=== PATIENT | female | born 1945 | race Caucasian/White ===

== ENCOUNTER 2018-04-14 07:39 | Inpatient (IN) | payer OTHER, MEDICARE ==
[~2018-04-14] VITALS: Ht 170.2 cm; Wt 55.1 kg
[~2018-04-14 07:39] MED LIST: ADULT LOW DOSE81 MG PO; ADVAIR 500-501 EACH INH; AZITHROMYCIN250 M1 PO; AZITHROMYCIN500 MG PO; BACTRIM DS TAB1 EACH PO; DUONEB 3 MG/3 ML3 ML INH/SOL; GUAIFENESIN ER600 MG PO; INDAPAMIDE1.25 M1 PO; IPRAT-ALBUT 0.5-3 ML INH; IPRAT-ALBUT 0.5-3 ML NEB; IPRATROPIU0.2 MG/1 M INH; NORVASC5 M1 PO; PREDNISONE10 M2 PO; PREDNISONE10 MG PO; PREDNISONE5 M1 PO; PROAIR HFA0.09 MG/Ac INH; SPIRIVA 18 MCG18 MCG INH; SPIRIVA18 MCG INH; SYMBICORT 160/41 PUF INH; SYMBICORT 16010.2 GM INH; VENTOLIN HFA18 GM INH; VENTOLIN1 PUF INH; ZITHROMAX TRI-500 M1 PO; ZITHROMAX250 M2 PO; ZOCOR10 M1 PO
--- NOTE | 2018-04-14 07:56 | ED DYSPNEA/ASTHMA COMPLAINT ---
History of Present Illness General Chief Complaint: Upper Respiratory Sx/Fever Stated Complaint: COUGH,CONGESTION X 1 WEEK Source: patient, family, old records Exam Limitations: no limitations Vital Signs & Intake/Output Vital Signs & Intake/Output Vital Signs Date Time Temp Pulse Resp B/P B/P Pulse O2 O2 Flow FiO2 Mean Ox Delivery Rate 04/14 1111 97.8 80 20 126/59 92 Room Air 04/14 1054 Room Air 04/14 0801 94 04/14 0744 98.9 81 15 131/65 92 Room Air Room Air Allergies Coded Allergies: No Known Allergies (04/14/18) Reconcile Medications Albuterol Sulfate (Ventolin Hfa) 18 GM HFA.AER.AD 2 PUF INH Q4-6 PRN PRN COPD (Reported) Amlodipine Besylate (Norvasc) 5 MG TABLET 1 TAB PO DAILY HEART (Reported) Aspirin (Adult Low Dose Aspirin EC) 81 MG TABLET.DR 1 TAB PO DAILY HEART HEALTH (Reported) Fluticasone/Salmeterol (Advair 500-50 Diskus) 500 MCG-50 MCG/DOSE BLST.W.DEV 1 PUF INH BID BREATHING PROBLEMS (Reported) Guaifenesin (Mucinex) 600 MG TAB.ER.12H 1 TAB PO BID PRN MUCUS (Reported) Indapamide 1.25 MG TABLET 1 TAB PO DAILY WATER RETENTION (Reported) Ipratropium/Albuterol Sulfate (Iprat-Albut 0.5-3(2.5) MG/3 Ml) 0.5 MG-3 MG (2.5 MG BASE)/3 ML AMPUL.NEB 1 VIAL NEB Q4 HRS NEEDED PRN SHORTNESS OF BREATH ( Reported) Prednisone 20 MG TABLET 1 TAB PO DAILY PRN STEROID (Reported) Simvastatin (Zocor*) 10 MG TABLET 1 TAB PO DAILY CHOLESTEROL (Reported) Tiotropium [place] (Spiriva) 18 MCG CAP.W.DEV 1 CAP INH DAILY COPD (Reported) Triage Note: PT TO ED FOR C/C OF YELLOW PRODUCTIVE COUGH, STUFFY NOSE AND CHEST CONGESTION. +SOB, WORSE WITH EXERTION. DENIES CHEST PAIN, NAUSEA, DIZZINESS. PT ALSO REPORTS A SHORT EPISODE OF UPSET STOMACH AND NAUSEA, BUT BOTH HAVE SUBSIDED. Triage Nurses Notes Reviewed? yes HPI: Patient presents with increasing shortness of breath or productive cough. Patient does have COPD. Patient is not on home oxygen. Patient states that it feels like she is having postnasal drip. Patient states she is coughing up yellow sputum. Patient denies any orthopnea and states that she actually feels that she is breathing better when she is laying down. Patient denies any chest pain or chest tightness. Patient states that she knows that she needs a breathing treatment when her whole body feels like it is tightening up but she does did not feel any distinct tightness just in her chest. She states that she does feels slightly short of breath with exertion and that prompted her to come to the emergency department. There are no fevers or chills. There is no anorexia. Patient was seen by her primary care physician on . They discussed steroids with the doctor want to see how she would do with breathing treatments alone. Patient states his symptoms have worsened. Past History Travel History Traveled to [place] past 21 day No Medical History Any Pertinent Medical History? 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 Relation not specified for: FH: hypertension Hx Contributory? No Review of Systems Review of Systems Constitutional: Reports: no symptoms. EENTM: Reports: no symptoms. Respiratory: Reports: see HPI, cough, short of breath, sputum production. Cardiovascular: Reports: no symptoms. GI: Reports: no symptoms. Genitourinary: Reports: no symptoms. Musculoskeletal: Reports: no symptoms. Skin: Reports: no symptoms. Neurological/Psychological: Reports: no symptoms. Hematologic/Endocrine: Reports: no symptoms. Immunologic/Allergic: Reports: no symptoms. All Other Systems: Reviewed and Negative Physical Exam Physical Exam General Appearance: well developed/nourished, alert, awake, anxious, mild distress Head: atraumatic, normal appearance Eyes: Bilateral: PERRL, EOMI. Ears, Nose, Throat: normal pharynx, normal ENT inspection, hearing grossly normal Neck: normal inspection, supple, full range of motion, NO JVD Respiratory: decreased breath sounds, wheezing, respiratory distress Cardiovascular: regular rate/rhythm, normal peripheral pulses Gastrointestinal: normal bowel sounds, soft, non-tender, no organomegaly Extremities: normal inspection, normal capillary refill, normal range of motion, no edema Neurologic/Psych: no motor/sensory deficits, awake, alert, oriented x 3, normal gait, normal mood/affect Skin: intact, normal color, warm/dry Lymphatic: no anterior cervical nitza Core Measures ACS in differential dx? No CVA/TIA Diagnosis No Sepsis Present: No Sepsis Focused Exam Completed? No Progress Differential Diagnosis: asthma, bronchitis, COPD, pneumonia, pneumothorax Plan of Care: Orders Procedure Date/time Status Heart Healthy Diet 04/14 D Active ED Holding Orders 04/14 1200 Active Admit to inpatient 04/14 1200 Active Vital Signs 04/14 1200 Active Code Status 04/14 1200 Active TROPONIN LEVEL 04/14 1037 Complete EKG 04/14 1037 Active Telemetry/Football Coach 04/14 0823 Active TROPONIN LEVEL 04/14 0756 Complete COMPREHENSIVE METABOLIC PANEL 04/14 0756 Complete CBC WITHOUT DIFFERENTIAL 04/14 0756 Complete EKG 04/14 0756 Active Current Medications Sig/Nikky Start time Last Medication Dose Stop Time Status Admin Albuterol Sulfate 3 ML ONCE ONE 04/14 1200 AC 04/14 (Proventil) 04/14 1201 1154 Laboratory Tests 04/14/18 1045: Troponin I < 0.01 04/14/18 0813: Anion Gap 13, Estimated GFR > 60, BUN/Creatinine Ratio 16.7, Glucose 97, Calcium 9.6, Total Bilirubin 1.2, AST 25, ALT 36, Alkaline Phosphatase 64, Troponin I < 0.01, Total Protein 6.7, Albumin 4.3, Globulin 2.4, Albumin/Globulin Ratio 1.8, CBC w Diff NO MAN DIFF REQ, RBC 4.66, MCV 94.7, MCH 32.0 H, MCHC 33.8, RDW 12.1 , MPV 6.7 L, Gran % 62.8, Lymphocytes % 26.9, Monocytes % 8.9, Eosinophils % 0.8, Basophils % 0.6, Absolute Granulocytes 6.6 H, Absolute Lymphocytes 2.8, Absolute Monocytes 0.9 H, Absolute Eosinophils 0.1, Absolute Basophils 0.1 Diagnostic Imaging: Viewed by Me: Radiology Read. Discussed w/RAD: Radiology Read. CXR Impression: PATIENT: MALENA NOVOA PRESENT AGE : 73 PATIENT ACCOUNT NO: [id number] : 47 LOCATION: [facility] ORDERING PHYSICIAN: Ace Zeng MD SERVICE DATE: 04/14/18 EXAM TYPE: RAD - XRY-CHEST XRAY, TWO VIEWS EXAMINATION: XR CHEST CLINICAL INFORMATION: Productive cough. COMPARISON: Chest radiography 06/30/2016. CT chest 10/07/2017. TECHNIQUE: 2 views of the chest were obtained. FINDINGS: The lungs are hyperexpanded. Minimal hazy basilar opacification overlying the posterior bilateral lower lobes on the lateral projection. No other consolidation, pleural effusion, pulmonary edema, or pneumothorax. No mediastinal widening. Aortic atherosclerotic calcification. No acute osseous abnormalities. IMPRESSION: Minimal hazy basilar opacification overlying the bilateral lower lobes on the lateral projection may represent atelectasis or other subtle consolidation. Hyperexpanded lungs consistent with COPD. DICTATED BY: Dandre Momin MD DATE/ TIME DICTATED:04/14/18812 OPERATIONS EXAMINER:REGI DATE/TIME TRANSCRIBED: 04/14/18812 CONFIDENTIAL, DO NOT COPY WITHOUT APPROPRIATE AUTHORIZATION. < Electronically signed in Other Vendor System> SIGNED BY: Dandre Momin MD 04/14/18825 Initial ED EKG: SINUS RHYTHM, NONSPECIFIC st-t CHANGES, NEW INFERIOR t-WAVE INVERSIONS WHICH WERE NOT SEEN ON THE ekg FROM 6 MONTHS AGO HOWEVER THE st DEPRESSIONS INFERIORLY WERE SEEN PRIOR. Prior EKG: changed Repeat EKG: unchanged Rhythm Strip: normal sinus rhythm Comments: Patient was feeling better. Patient noticed to have a oxygen saturation of 89% at rest. Patient got up and ambulatory saturation was checked. Her ambulatory saturation dropped to 83% and patient began to feel chest tightness. Patient has wheezing on lung sounds. At this point the patient will be admitted for COPD exacerbation with probable pneumonia on chest x-ray. D/W DR. RAMIREZ, HE WILL CONSULT Departure Departure Disposition: STILL A PATIENT Condition: Stable Clinical Impression Primary Impression: Pneumonia Secondary Impressions: COPD exacerbation, Hypokalemia, ST segment changes on electrocardiogram Referrals: Sharan Patel MD (PCP/Family) Johann Ramirez MD Departure Forms: Customer Survey General Discharge Information Admission Note Spoke With: Sharan Patel MD Documentation of Exam: Documentation of any treatments & extenuating circumstances including Concerns Regarding Discharge (functional status, medication knowledge or non-compliance, living conditions, etc.) that warrant an admission rather than observation: [ Patient to be admitted for COPD exacerbation with hypoxia and possible pneumonia seen on chest x-ray. Patient will require nebulizers, steroids, antibiotics, pulmonary consultation. She also has EKG changes however 2 sets of enzymes are negative. Patient should be on telemetry monitoring and have cardiology consultation. Her potassium has been replaced.] Critical Care Note Critical Care Note Critical Care Time: mins: (90 MIN)
[2018-04-14 08:26] LABS: ABSOLUTE BASOPHIL COUNT 0.1 /CUMM (0.0-0.2); ABSOLUTE EOSINOPHIL COUNT 0.1 /CUMM (0.0-0.7); ABSOLUTE GRANULOCYTE CT 6.6 /CUMM (1.4-6.5); ABSOLUTE LYMPH COUNT 2.8 /CUMM (1.2-3.4); ABSOLUTE MONOCYTE COUNT 0.9 /CUMM (0.10-0.60); BASOPHIL % 0.6 % (0.0-2.0); EOSINOPHIL % 0.8 % (0-5); GRANULOCYTE % 62.8 % (42.2-75.2); HEMATOCRIT 44.2 % (37-47); MEAN CORPUSCULAR HGB CONC 33.8 G/DL (33.0-37.0); MEAN CORPUSCULAR VOLUME 94.7 FL (81.0-99.0); MEAN PLATELET VOLUME 6.7 FL (7.4-10.4); PLATELET COUNT 379 /CUMM (130-400); RBC DISTRIBUTION WIDTH 12.1 % (11.5-14.5); RED BLOOD CELL CT 4.66 /CUMM (4.20-5.40); WHITE BLOOD CELL COUNT 10.4 /CUMM (4.8-10.8)
--- NOTE | 2018-04-14 08:26 | RADIOLOGY REPORT ---
EXAMINATION: XR CHEST CLINICAL INFORMATION: Productive cough. COMPARISON: Chest radiography 06/30/2016. CT chest 10/07/2017. TECHNIQUE: 2 views of the chest were obtained. FINDINGS: The lungs are hyperexpanded. Minimal hazy basilar opacification overlying the posterior bilateral lower lobes on the lateral projection. No other consolidation, pleural effusion, pulmonary edema, or pneumothorax. No mediastinal widening. Aortic atherosclerotic calcification. No acute osseous abnormalities. IMPRESSION: Minimal hazy basilar opacification overlying the bilateral lower lobes on the lateral projection may represent atelectasis or other subtle consolidation. Hyperexpanded lungs consistent with COPD.
[2018-04-14] MEDS ORDERED: PREDNISONE20 M1 PO (08:44)
[2018-04-14] MEDS ORDERED: MUCINEX600 M1 PO (08:46)
--- NOTE | 2018-04-14 12:18 | History & Physical ---
Barb Jung 04/14/18 1217: General Information and HPI MD Statement: I have seen and personally examined MALENA MONACO and documented this H&P. Source of Information: patient Exam Limitations: no limitations History of Present Illness: Ms. Monaco is a 73 yo lady with past medical history significant for COPD not on home oxygen, CAD s/p 2 stent placement in 2010, hypertension, hyperlipidemia who presented to ED with complaint of increasing shortness of breath productive cough since Saturday the . She reports coughing up pale yellow sputum since last night. Ususally has clear sputum. No fever/chills, no h/o sick contacts. Patient denies any orthopnea.She denies any chest pain or chest tightness. The patient visited COPD clinic on and received breathing treatment. She had some prednisone tab (20 mg) at home and started taking it on Saturday, finished yesterday(5-day). She came to the hospital today after noticing worsening of SOB since last night. Received 3 breathing treatment, feels good right. Denies SOB or CP at the time of our interview. Denies smoking, ETOH use, illicit drug use. Follows with Dr. Hernandez as outpatient. Was scheduled for abdominal US and Echo this week. Follows with Dr. Raines for COPD. Scheduled for a follow up CT scan next month for monitoring of nodules. In the ED, she was noted to have EKG changes(EKG revealed new T wave inversion in v2,v5,3, Avl, Avf; relatively similar to EKG in 2017). Allergies/Medications Allergies: Coded Allergies: No Known Allergies (04/14/18) Home Med list Albuterol Sulfate (Ventolin Hfa) 18 GM HFA.AER.AD 2 PUF INH Q4-6 PRN PRN COPD (Reported) Amlodipine Besylate (Norvasc) 5 MG TABLET 1 TAB PO DAILY HEART (Reported) Aspirin (Adult Low Dose Aspirin EC) 81 MG TABLET.DR 1 TAB PO DAILY HEART HEALTH (Reported) Fluticasone/Salmeterol (Advair 500-50 Diskus) 500 MCG-50 MCG/DOSE BLST.W.DEV 1 PUF INH BID BREATHING PROBLEMS (Reported) Guaifenesin (Mucinex) 600 MG TAB.ER.12H 1 TAB PO BID PRN MUCUS (Reported) Indapamide 1.25 MG TABLET 1 TAB PO DAILY WATER RETENTION (Reported) Ipratropium/Albuterol Sulfate (Iprat-Albut 0.5-3(2.5) MG/3 Ml) 0.5 MG-3 MG (2.5 MG BASE)/3 ML AMPUL.NEB 1 VIAL NEB Q4 HRS NEEDED PRN SHORTNESS OF BREATH ( Reported) Prednisone 20 MG TABLET 1 TAB PO DAILY PRN STEROID (Reported) Simvastatin (Zocor*) 10 MG TABLET 1 TAB PO DAILY CHOLESTEROL (Reported) Tiotropium [place] (Spiriva) 18 MCG CAP.W.DEV 1 CAP INH DAILY COPD (Reported) Past History Travel History Traveled to [place] past 21 day No Medical History Neurological: NONE EENT: CATARACS IN BOTH EYES Cardiovascular: hypertension, hyperlipidemia, CAD status post stenting in 2010 Respiratory: bronchitis, COPD, emphysema, non-oxygen dependent COPD pulmonary nodules, followed by CT scanning Gastrointestinal: NONE Hepatic: NONE Renal: NONE Musculoskeletal: NONE Psychiatric: NONE Endocrine: multinodular goiter Blood Disorders: NONE Cancer(s): NONE 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 Relation not specified for: FH: hypertension Psychosocial History Who Do You Live With? child Services at Home: None Primary Language: Thai ETOH Use: occasional use Illicit Drug Use: denies illicit drug use Other Social History: SHE QUIT SMOKING BUT HER SON SMOKES IN THE HOUSE Functional Ability ADLs Independent: dressing, eating, toileting, bathing. Ambulation: independent IADLs Independent: shopping, housework, finances, food prep, telephone, transportation , medication admin. Review of Systems Review of Systems Constitutional: Denies: chills, diaphoresis, fever, malaise, weakness, unexplained weight loss. EENTM: Reports: nasal congestion. Denies: blurred vision, double vision, visual changes, eye pain, eye drainage, eye tearing, icterus, ear discharge, ear pain, ear redness, hearing changes, epistaxis, nasal pain, throat pain. Cardiovascular: Denies: chest pain, edema, orthopena, palpitations, peripheral edema, syncope. Respiratory: Reports: cough, short of breath, sputum production. Denies: hemoptysis, orthopnea, stridor, wheezing. GI: Reports: constipation. Denies: abdominal pain, bloating, diarrhea, distention, bowel incontinence, melena, nausea, bloody stool, changes in stool, vomiting, steatorrhea. Genitourinary: Denies: discharge, dysuria, frequency, hematuria, hesitation, nocturia, pain, urgency. Musculoskeletal: Denies: back pain, gout, joint pain, joint swelling, muscle pain, muscle stiffness, neck pain. Skin: Denies: cysts, change in skin color, change in hair/nails, dryness, erythema, jaundice, lesions, lymphangitis, lumps, moles, rash. Neurological/Psychological: Reports: no symptoms. Hematologic/Endocrine: Reports: no symptoms. Immunologic/Allergic: Reports: no symptoms. All Other Systems: Reviewed and Negative Exam & Diagnostic Data Last 24 Hrs of Vital Signs/I&O Vital Signs Date Time Temp Pulse Resp B/P B/P Pulse O2 O2 Flow FiO2 Mean Ox Delivery Rate 04/14 1154 95 Nasal 2.0L Cannula 04/14 1111 97.8 80 20 126/59 92 Room Air 04/14 1054 Room Air 04/14 0936 94 04/14 0801 94 04/14 0744 98.9 81 15 131/65 92 Room Air Room Air Intake & Output 04/14 1600 04/14 0800 04/14 0000 Intake Total Output Total Balance Patient 125 lb Weight Weight Reported by Patient Measurement Method Physical Exam General Appearance Alert, Oriented X3, Cooperative, No Acute Distress Skin No Rashes HEENT Atraumatic, PERRLA, EOMI, Mucous Membr. moist/pink Neck Supple, No JVD, No thryomegaly, +2 Carotid Pulse wo Bruit, No LAD Lymphatic Cervical nl Cardiovascular Regular Rate, Normal S1, Normal S2, No Murmurs, Gallops, Rubs Lungs Diminished breath sounds b/l, no wheezes, no rhonchi Abdomen Normal Bowel Sounds, Soft, No Tenderness, No Hepatospenomegaly, No Masses Neurological Normal Speech, Strength at 5/5 X4 Ext, Normal Tone, Sensation Intact, Cranial Nerves 3-12 NL, Reflexes 2+ Extremities No Clubbing, No Cyanosis, No Edema, Normal Pulses, No Tenderness/ Swelling Vascular Normal Pulses, Pulses Symmetrical Last 24 Hrs of Labs/Sea: Laboratory Tests 04/14/18 1045: Troponin I < 0.01 04/14/18 0813: Anion Gap 13, Estimated GFR > 60, BUN/Creatinine Ratio 16.7, Glucose 97, Calcium 9.6, Magnesium 1.8, Total Bilirubin 1.2, AST 25, ALT 36, Alkaline Phosphatase 64 , Troponin I < 0.01, Total Protein 6.7, Albumin 4.3, Globulin 2.4, Albumin/ Globulin Ratio 1.8, CBC w Diff NO MAN DIFF REQ, RBC 4.66, MCV 94.7, MCH 32.0 H, MCHC 33.8, RDW 12.1, MPV 6.7 L, Gran % 62.8, Lymphocytes % 26.9, Monocytes % 8.9, Eosinophils % 0.8, Basophils % 0.6, Absolute Granulocytes 6.6 H, Absolute Lymphocytes 2.8, Absolute Monocytes 0.9 H, Absolute Eosinophils 0.1, Absolute Basophils 0.1 Diagnostic Data EKG Results SR 71, Qtc 453 ,new T wave inversion in v2,v5,3, Avl, Avf; relatively similar to EKG in 2017 CXR Results Minimal hazy basilar opacification overlying the bilateral lower lobes on the lateral projection may represent atelectasis or other subtle consolidation. Hyperexpanded lungs consistent with COPD. Assessment/Plan Assessment: Ms. Monaco is a 73 yo lady with past medical history significant for COPD not on home oxygen, CAD s/p 2 stent placement in 2010, hypertension, hyperlipidemia who presented to ED with complaint of increasing shortness of breath productive cough since Saturday the . In the ED, her symptoms improved after receiving TRC/Nebs. Afebrile, no leukocytosis. EKG reveals new T wave inversions in v2,v5,3, Avl, Avf; relatively similar to EKG in 2017. She has received one dose of Augmentin in the ED. Problem list: #COPD exacerbation #EKG change #Hypokalemia #h/o CAD, HTN, Hyperlipidemia Plan: accordingly; repeat labs later today taken her morning dose of medication today. As Ranked By This Provider Problem List: 1. COPD exacerbation 2. Hypokalemia Core Measures/Misc (08/18) Acute Coronary Syndrome ACS Diagnosis: No Congestive Heart Failure Congestive Heart Failure Diagnosis No Cerebrovascular Accident CVA/TIA Diagnosis: No VTE (View Protocol) VTE Risk Factors Age>40 No Mechanical VTE Prophylaxis d/t N/A MechProphylax Ordered No VTE Pharm Prophylaxis d/t NA PharmProphylax ordered Sepsis (View protocol) Sepsis Present: No Sharan Patel MD 04/14/18 1332: Attending MD Review Statement Attending Statement Attending MD Statement: examined this patient, discuss w/resident/PA/CADDY PACKER, agreed w/resident/PA/CADDY PACKER, reviewed EMR data (avail), reviewed images, amended to note Attending Assessment/Plan: Mrs. Monaco was interviewed and examined while in the emergency room. Her EMR was reviewed. Problems: -Acute on chronic respiratory failure with hypoxemia -AECOPD -New T-wave abnormalities on her EKG -Hypokalemia -History of CAD -Status post stenting -Aortic and mitral valve disease -Hypertension -Dyslipidemia -Nontoxic multinodular goiter -Impaired fasting glucose -Pulmonary nodule Plan: -Admit telemetry -Follow-up troponin and EKG -Cardiology consultation -Supplemental O2 -TRC -Intravenous steroids -Nebs +/- mucolytics -Intravenous azithromycin -Pulmonary consultation -Replete potassium follow electrolytes -Repeat TFTs -Follow glucose -Continue maintenance medications -
[2018-04-14 16:38] VITALS: BP 122/60
--- NOTE | 2018-04-14 18:15 | Cons- Cardiology ---
General Information and HPI Consulting Request Date of Consult: 04/14/18 Requested By: Sharan Patel MD Reason for Consult: Abnormal EKG History of Present Illness: The patient is a 73-year-old female with history of COPD, CAD status post stent placement 2 in 2010, hypertension, and hyperlipidemia. She is followed in the office by Dr. Hernandez. She presented with worsening shortness of breath and cough productive of yellow sputum. She is admitted for acute COPD exacerbation. She is noted to have an abnormal EKG, and I am consulted to rule out a cardiac cause of her symptoms. She has had no recent chest pain. No palpitations. No syncope. No orthopnea. No nausea or vomiting. No lightheadedness or dizziness. She notes that she was scheduled for an echocardiogram with Dr. Hernandez which she missed because of her hospital admission. Allergies/Medications Allergies: Coded Allergies: No Known Allergies (04/14/18) Home Med List: Albuterol Sulfate (Ventolin Hfa) 18 GM HFA.AER.AD 2 PUF INH Q4-6 PRN PRN COPD (Reported) Amlodipine Besylate (Norvasc) 5 MG TABLET 1 TAB PO DAILY HEART (Reported) Aspirin (Adult Low Dose Aspirin EC) 81 MG TABLET.DR 1 TAB PO DAILY HEART HEALTH (Reported) Fluticasone/Salmeterol (Advair 500-50 Diskus) 500 MCG-50 MCG/DOSE BLST.W.DEV 1 PUF INH BID BREATHING PROBLEMS (Reported) Guaifenesin (Mucinex) 600 MG TAB.ER.12H 1 TAB PO BID PRN MUCUS (Reported) Indapamide 1.25 MG TABLET 1 TAB PO DAILY WATER RETENTION (Reported) Ipratropium/Albuterol Sulfate (Iprat-Albut 0.5-3(2.5) MG/3 Ml) 0.5 MG-3 MG (2.5 MG BASE)/3 ML AMPUL.NEB 1 VIAL NEB Q4 HRS NEEDED PRN SHORTNESS OF BREATH ( Reported) Prednisone 20 MG TABLET 1 TAB PO DAILY PRN STEROID (Reported) Simvastatin (Zocor*) 10 MG TABLET 1 TAB PO DAILY CHOLESTEROL (Reported) Tiotropium [place] (Spiriva) 18 MCG CAP.W.DEV 1 CAP INH DAILY COPD (Reported) Current Medications: Current Medications Sig/Nikky Start time Last Medication Dose Route Stop Time Status Admin Albuterol Sulfate 2 PUF Q4-6 PRN PRN 04/14 1345 AC INH Albuterol Sulfate 3 ML ONCE ONE 04/14 1200 DC 04/14 INH 04/14 1201 1154 Albuterol Sulfate 3 ML ONCE ONE 04/14 0930 DC 04/14 INH 04/14 0931 0936 Albuterol Sulfate 3 ML ONCE ONE 04/14 0800 DC 04/14 INH 04/14 0801 0801 Amlodipine Besylate 5 MG DAILY 04/15 0900 AC PO Amoxicillin/ 0 .STK-MED ONE 04/14 0905 DC Clavulanate Potassium PO Amoxicillin/ 500 MG ONCE ONE 04/14 0845 DC 04/14 Clavulanate Potassium PO 04/14 0846 0859 Aspirin Buffered 81 MG DAILY 04/15 0900 AC PO Atorvastatin Calcium 5 MG 1700 04/14 1700 AC PO Azithromycin 500 MG DAILY 04/15 0900 AC Sodium Chloride 250 ML IV 04/19 0959 Enoxaparin Sodium 40 MG DAILY 04/14 1327 AC SC Guaifenesin 600 MG BID PRN 04/14 1345 AC PO Indapamide 1.25 MG 0800 04/15 0800 AC PO Ipratropium [place] 2.5 ML ONCE ONE 04/14 0800 DC 04/14 INH 04/14 0801 0801 Methylprednisolone 40 MG Q12 04/14 2100 AC IV Potassium Chloride 40 MEQ ONCE ONE 04/14 1230 DC 04/14 PO 04/14 1231 1230 Potassium Chloride 0 .STK-MED ONE 04/14 0944 DC PO Potassium Chloride 40 MEQ ONCE ONE 04/14 0930 DC 04/14 PO 04/14 0931 0946 Prednisone 0 .STK-MED ONE 04/14 0905 DC PO Prednisone 60 MG ONCE ONE 04/14 0845 DC 04/14 PO 04/14 0846 0859 Tiotropium [place] 1 PUF DAILY 04/14 1332 AC INH Review of Systems Review of Systems: No rash. No tremor. No melena. All other systems were reviewed, and were noted to be negative. 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 Relation not specified for: FH: hypertension Psychosocial History Where Do You Live? Home Who Do You Live With? child Services at Home: None Primary Language: Palauan Smoking Status: Former Smoker ETOH Use: occasional use Illicit Drug Use: denies illicit drug use Other Social History: SHE QUIT SMOKING BUT HER SON SMOKES IN THE HOUSE Functional Ability ADLs Independent: dressing, eating, toileting, bathing. Ambulation: independent IADLs Independent: shopping, housework, finances, food prep, telephone, transportation , medication admin. Exam & Diagnostic Data Vital Signs and I&O Vital Signs Date Time Temp Pulse Resp B/P B/P Pulse O2 O2 Flow FiO2 Mean Ox Delivery Rate 04/14 1638 97.8 83 20 122/60 95 Room Air 04/14 1627 Nasal 2.0L Cannula 04/14 1542 98.3 80 20 128/62 94 Nasal 2.0L Cannula 04/14 1154 95 Nasal 2.0L Cannula 04/14 1111 97.8 80 20 126/59 92 Room Air 04/14 1054 Room Air 04/14 0936 94 04/14 0801 94 04/14 0744 98.9 81 15 131/65 92 Room Air Room Air Intake & Output 04/14 1600 04/14 0800 04/14 0000 04/13 1600 04/13 0800 04/13 0000 Intake Total Output Total Balance Patient 125 lb Weight Weight Reported by Patient Measurement Method Physical Exam: Gen: The patient is in no acute distress HEENT: Normal nose, ears, and oropharynx. Pupils equal bilaterally. Conjunctiva normal. Neck: Supple with no JVD, no masses, and no thyromegaly Lungs: Bilateral rhonchi with normal respiratory effort Heart: RRR, S1, S2, no murmurs. No peripheral edema, 2+ pulses in the lower extremities bilaterally Abdomen: Soft, nontender, no masses. No hepatomegaly. No splenomegaly Extremities: No clubbing or cyanosis. Normal muscle strength in the upper and lower extremities Skin: Normal skin turgor with no skin ulcers or lesions noted. Neuro: Cranial nerves intact. Sensation intact Psych: Alert and oriented x 3 with appropriate affect Labs/Sea Results: Laboratory Tests 04/14 04/14 04/14 1650 1045 0813 Chemistry Sodium (137 - 145 mmol/L) Pending 133 L Potassium (3.5 - 5.1 mmol/L) Pending 3.0 L Chloride (98 - 107 mmol/L) Pending 85 L Carbon Dioxide (22 - 30 mmol/L) Pending 35 H Anion Gap (5 - 16) Pending 13 BUN (7 - 17 mg/dL) Pending 10 Creatinine (0.5 - 1.0 mg/dL) Pending 0.6 Estimated GFR (>60 ml/min) > 60 BUN/Creatinine Ratio (7 - 25 %) Pending 16.7 Glucose (65 - 99 mg/dL) 97 Calcium (8.4 - 10.2 mg/dL) 9.6 Magnesium (1.6 - 2.3 mg/dL) 1.8 Total Bilirubin (0.2 - 1.3 mg/dL) 1.2 AST (14 - 36 U/L) 25 ALT (9 - 52 U/L) 36 Alkaline Phosphatase (<127 U/L) 64 Troponin I (< 0.11 ng/ml) Pending < 0.01 < 0.01 Total Protein (6.3 - 8.2 g/dL) 6.7 Albumin (3.5 - 5.0 g/dL) 4.3 Globulin (1.9 - 4.2 gm/dL) 2.4 Albumin/Globulin Ratio (1.1 - 2.2 %) 1.8 TSH (0.270 - 4.200 uIU/mL) 0.814 Free T4 (0.78 - 2.44 ng/dL) 2.15 Hematology CBC w Diff NO MAN DIFF REQ WBC (4.8 - 10.8 /CUMM) 10.4 RBC (4.20 - 5.40 /CUMM) 4.66 Hgb (12.0 - 16.0 G/DL) 14.9 Hct (37 - 47 %) 44.2 MCV (81.0 - 99.0 FL) 94.7 MCH (27.0 - 31.0 PG) 32.0 H MCHC (33.0 - 37.0 G/DL) 33.8 RDW (11.5 - 14.5 %) 12.1 Plt Count (130 - 400 /CUMM) 379 MPV (7.4 - 10.4 FL) 6.7 L Gran % (42.2 - 75.2 %) 62.8 Lymphocytes % (20.5 - 51.1 %) 26.9 Monocytes % (1.7 - 9.3 %) 8.9 Eosinophils % (0 - 5 %) 0.8 Basophils % (0.0 - 2.0 %) 0.6 Absolute Granulocytes (1.4 - 6.5 /CUMM) 6.6 H Absolute Lymphocytes (1.2 - 3.4 /CUMM) 2.8 Absolute Monocytes (0.10 - 0.60 /CUMM) 0.9 H Absolute Eosinophils (0.0 - 0.7 /CUMM) 0.1 Absolute Basophils (0.0 - 0.2 /CUMM) 0.1 Diagnostic Data EKG Results EKG tracings independently reviewed, and reveals normal sinus rhythm at 60, left atrial normality, intraventricular conduction delay, poor R-wave progression CXR Results Minimal hazy basilar opacification overlying the bilateral lower lobes on the lateral projection may represent atelectasis or other subtle consolidation. Hyperexpanded lungs consistent with COPD. Assessment/Plan Assessment/Plan Assessment: 1. History of CAD, status post stents 2 in 2010 2. Hypertension 3. Acute COPD exacerbation 4. Abnormal EKG with changes noted compared to prior EKG 5. Hypokalemia Plan: * Check serial troponin to rule out myocardial infarction * Supplement potassium * Treatment of COPD exacerbation as per medical team * Echocardiogram Consult Acknowledgment - Thank you for your consult request.
[2018-04-14 22:22] VITALS: BP 124/70
[2018-04-15 07:12] VITALS: BP 108/66
--- NOTE | 2018-04-15 07:13 | PN- Housestaff ---
Clover MONTOYA,[facility] 04/15/18 0713: Subjective Follow-up For: AE COPD Tele-Events Since Last Visit: Normal sinus rhythm, sinus bradycardia Rate: 57-83. Subjective: Mr. Monaco was seen and examined this morning. She is resting comfortably in bed. Denies any issues overnight. States that she was able to get some rest. States that breathing is improved and endorses occasional cough with mild sputum production. Denies any chest pain or chest discomfort. Has been tolerating by mouth intake well. Overnight no issues were reported. Review of Systems Constitutional: Reports: see HPI. Objective Last 24 Hrs of Vital Signs/I&O Vital Signs Date Time Temp Pulse Resp B/P B/P Pulse O2 O2 Flow FiO2 Mean Ox Delivery Rate 04/15 1034 96 Nasal 2.0L Cannula 04/15 0904 90 122/54 04/15 0800 Nasal 2.0L Cannula 04/15 0712 98.7 82 18 108/66 96 Nasal Cannula 04/15 0000 95 Nasal 2.0L Cannula 04/14 2222 97.5 77 18 124/70 94 Nasal Cannula 04/14 2025 Nasal 2.0L Cannula 04/14 1638 97.8 83 20 122/60 95 Room Air 04/14 1627 Nasal 2.0L Cannula 04/14 1542 98.3 80 20 128/62 94 Nasal 2.0L Cannula Intake & Output 04/15 1600 04/15 0800 04/15 0000 Intake Total 100 582 Output Total Balance 100 582 Intake, IV 10 Intake, Oral 100 572 Number 0 Bowel Movements Patient 54.459 kg Weight Weight Bed scale Measurement Method Physical Exam General Appearance: Alert, Oriented X3 HEENT: Mucous Membr. moist/pink Cardiovascular: Regular Rate Lungs: Normal Air Movement, Mild Wheezing noted. Abdomen: Normal Bowel Sounds, Soft, No Tenderness Neurological: Normal Speech Extremities: No Clubbing, No Cyanosis, No Edema Current Medications: Current Medications Sig/Nikky Start time Last Medication Dose Route Stop Time Status Admin Albuterol Sulfate 3 ML BID 04/14 2100 AC 04/15 INH 1030 Albuterol Sulfate 2 PUF Q4-6 PRN PRN 04/14 1345 AC INH Amlodipine Besylate 5 MG DAILY 04/15 09 AC 04/15 PO 0904 Aspirin Buffered 81 MG DAILY 04/15 0900 AC 04/15 PO 0903 Atorvastatin Calcium 5 MG 1700 04/14 1700 AC 04/14 PO 1836 Azithromycin 500 MG DAILY 04/15 0900 AC 04/15 Sodium Chloride 250 ML IV 04/19 0959 0903 Budesonide/ 2 PUF BID 04/14 2100 AC 04/15 Formoterol Fumarate INH 0907 Enoxaparin Sodium 40 MG DAILY 04/14 1327 AC 04/15 SC 0905 Guaifenesin 600 MG BID PRN 04/14 1345 AC 04/15 PO 0905 Indapamide 1.25 MG 0800 04/15 0800 AC 04/15 PO 0905 Ipratropium [place] 2.5 ML BID 04/14 2100 AC 04/15 INH 1030 Methylprednisolone 40 MG Q12 04/14 2100 AC 04/15 IV 0906 Potassium Chloride 20 MEQ ONCE ONE 04/14 194 CAN PO 04/14 194 Potassium Chloride 40 MEQ ONCE ONE 04/14 191 DC 04/14 PO 04/14 191 2048 Tiotropium [place] 1 PUF DAILY 04/14 1332 AC 04/15 INH 0906 Last 24 Hrs of Lab/Sea Results Last 24 Hrs of Labs/Mics: Laboratory Tests 04/15/18 0625: Anion Gap 14, Estimated GFR > 60, BUN/Creatinine Ratio 16.0, CBC w Diff NO MAN DIFF REQ, RBC 4.58, MCV 93.8, MCH 32.0 H, MCHC 34.1, RDW 12.3, MPV 7.2 L, Gran % 73.6, Lymphocytes % 22.2, Monocytes % 4.1, Eosinophils % 0, Basophils % 0.1, Absolute Granulocytes 4.7, Absolute Lymphocytes 1.4, Absolute Monocytes 0.3, Absolute Eosinophils 0, Absolute Basophils 0 04/14/18 1650: Anion Gap 12, Estimated GFR > 60, BUN/Creatinine Ratio 16.0, Troponin I < 0.01 Microbiology 04/15 1224 LOWER RESP: Respiratory Culture - ORD 04/15 122 LOWER RESP: Gram Stain - ORD Assessment/Plan Assessment: Ms. Monaco is a 73 yo lady with past medical history significant for COPD not on home oxygen, CAD s/p 2 stent placement in 2010, hypertension, hyperlipidemia who presented to ED with complaint of increasing shortness of breath. Her EKG reveals new T wave inversions in V2,V5,Avl, Avf. While in the emergency department she received 1 dose of Augmentin. She is currently admitted to the telemetry service and being managed for the following problems Problem list: Acute on chronic respiratory failure with hypoxemia AECOPD Hypokalemia H/x of CAD, HTN, Hyperlipidemia Plan: Continue IV azithromycin for COPD exacerbation, may transition to PO from 04/16 Methyl prednisone IV 40 mg every 12. May transition to prednisone from 04/16. Follow-up sputum cultures and sensitivities. Initial set of troponins and EKGs have been within normal limits and she's been ruled out. Currently awaiting an echocardiogram. Hypokalemia has resolved. Continue home medications :aspirin, amlodipine, inhalers, antihypertensives. Incentive spirometer. DVT prophylaxis with Lovenox. Patient is Full code Problem List: 1. COPD exacerbation 2. COPD exacerbation 3. Acute bronchitis Pain Ratin Pain Location: No Pain Pain Goal: Remain pain free Pain Plan: Tylenol PRN Tomorrow's Labs & Rationales: BEP: Monitor Electrolytes in the setting of low K Sharan Patel MD 04/15/18 1318: Attending MD Review Statement Attending Statement Attending MD Statement: examined this patient, discuss w/resident/PA/FISHER SEAL, agreed w/resident/PA/FISHER SEAL, reviewed EMR data (avail), amended to note Attending Assessment/Plan: Mrs. Monaco was interviewed and examined. Her EMR was reviewed. He states she is feeling better today. She specifically denies chest pain, SOB, palpitations, fever, chills, nausea, and vomiting. She is afebrile. her heart rate is stable at 80-90 range. Her rate is stable. Systolic blood pressure is between 110 and 130. Oxygen saturations are in the mid 90s on 2 L via nasal cannula. She is in no acute distress. Pulmonary exam reveals increased resonance to percussion with decreased air exchange. Wheezes are not appreciated. Cardiac exam reveals regular rate and rhythm. Her abdomen is benign. CBC is reviewed and it is essentially normal. Her electrolyte abnormalities have corrected. Thyroid functions are within normal limits.Sputum studies are pending as is her echocardiogram. I agree that we should tinea her intravenous antibiotics and steroids through today and change to by mouth in the a.m. We will need to review her echo. We are continuing her maintenance medications.
[2018-04-15 08:11] LABS: ABSOLUTE BASOPHIL COUNT 0 /CUMM (0.0-0.2); ABSOLUTE EOSINOPHIL COUNT 0 /CUMM (0.0-0.7); ABSOLUTE GRANULOCYTE CT 4.7 /CUMM (1.4-6.5); ABSOLUTE LYMPH COUNT 1.4 /CUMM (1.2-3.4); ABSOLUTE MONOCYTE COUNT 0.3 /CUMM (0.10-0.60); BASOPHIL % 0.1 % (0.0-2.0); EOSINOPHIL % 0 % (0-5); GRANULOCYTE % 73.6 % (42.2-75.2); MEAN CORPUSCULAR HGB CONC 34.1 G/DL (33.0-37.0); MEAN CORPUSCULAR VOLUME 93.8 FL (81.0-99.0); MEAN PLATELET VOLUME 7.2 FL (7.4-10.4); PLATELET COUNT 360 /CUMM (130-400); RBC DISTRIBUTION WIDTH 12.3 % (11.5-14.5); RED BLOOD CELL CT 4.58 /CUMM (4.20-5.40); WHITE BLOOD CELL COUNT 6.4 /CUMM (4.8-10.8)
--- NOTE | 2018-04-15 08:40 | Cons- Pulmonary ---
General Information and HPI Consulting Request Date of Consult: 04/15/18 Requested By: Dr. Patel Reason for Consult: Exacerbation of COPD History of Present Illness: Patient is 73-year-old with COPD not on oxygen formally smoking history of pulmonary nodules bronchiectasis admitted with increasing shortness of breath cough productive of discolored sputum without hemoptysis. Patient has had abnormal CT scan of October 2017 showing bronchiectasis and mucus impaction. She has grown stenotrophomonas in the past as well as mold. Allergies/Medications Allergies: Coded Allergies: No Known Allergies (04/14/18) Home Med List: Albuterol Sulfate (Ventolin Hfa) 18 GM HFA.AER.AD 2 PUF INH Q4-6 PRN PRN COPD (Reported) Amlodipine Besylate (Norvasc) 5 MG TABLET 1 TAB PO DAILY HEART (Reported) Aspirin (Adult Low Dose Aspirin EC) 81 MG TABLET.DR 1 TAB PO DAILY HEART HEALTH (Reported) Fluticasone/Salmeterol (Advair 500-50 Diskus) 500 MCG-50 MCG/DOSE BLST.W.DEV 1 PUF INH BID BREATHING PROBLEMS (Reported) Guaifenesin (Mucinex) 600 MG TAB.ER.12H 1 TAB PO BID PRN MUCUS (Reported) Indapamide 1.25 MG TABLET 1 TAB PO DAILY WATER RETENTION (Reported) Ipratropium/Albuterol Sulfate (Iprat-Albut 0.5-3(2.5) MG/3 Ml) 0.5 MG-3 MG (2.5 MG BASE)/3 ML AMPUL.NEB 1 VIAL NEB Q4 HRS NEEDED PRN SHORTNESS OF BREATH ( Reported) Prednisone 20 MG TABLET 1 TAB PO DAILY PRN STEROID (Reported) Simvastatin (Zocor*) 10 MG TABLET 1 TAB PO DAILY CHOLESTEROL (Reported) Tiotropium [place] (Spiriva) 18 MCG CAP.W.DEV 1 CAP INH DAILY COPD (Reported) Review of Systems Review of Systems Constitutional: Denies: chills, fever. Cardiovascular: Denies: chest pain. Respiratory: Reports: cough, short of breath, sputum production. Denies: hemoptysis. GI: Denies: abdominal pain, diarrhea, melena. 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 Relation not specified for: FH: hypertension Psychosocial History Where Do You Live? Home Who Do You Live With? child Services at Home: None Primary Language: Ugandan Smoking Status: Former Smoker ETOH Use: occasional use Illicit Drug Use: denies illicit drug use Other Social History: SHE QUIT SMOKING BUT HER SON SMOKES IN THE HOUSE Functional Ability ADLs Independent: dressing, eating, toileting, bathing. Ambulation: independent IADLs Independent: shopping, housework, finances, food prep, telephone, transportation , medication admin. Exam & Diagnostic Data Last 24 Hrs of Vital Signs/I&O Vital Signs Date Time Temp Pulse Resp B/P B/P Pulse O2 O2 Flow FiO2 Mean Ox Delivery Rate 04/15 0712 98.7 82 18 108/66 96 Nasal Cannula 04/15 0000 95 Nasal 2.0L Cannula 04/14 2222 97.5 77 18 124/70 94 Nasal Cannula 04/14 2025 Nasal 2.0L Cannula 04/14 1638 97.8 83 20 122/60 95 Room Air 04/14 1627 Nasal 2.0L Cannula 04/14 1542 98.3 80 20 128/62 94 Nasal 2.0L Cannula 04/14 1154 95 Nasal 2.0L Cannula 04/14 1111 97.8 80 20 126/59 92 Room Air 04/14 1054 Room Air 04/14 0936 94 Intake & Output 04/15 1600 04/15 0800 04/15 0000 Intake Total 100 582 Output Total Balance 100 582 Intake, IV 10 Intake, Oral 100 572 Number 0 Bowel Movements Patient 120 lb Weight Weight Bed scale Measurement Method Oxygen saturation 2 L 96% exam for chest shows diminished breath sounds are no wheezes or crackles cardiac exam shows regular S1 and S2 without murmurs abdomen is soft nontender and there is no edema Last 48 Hrs of Labs/Sea: Laboratory Tests 04/15/18 0625: Anion Gap 14, Estimated GFR > 60, BUN/Creatinine Ratio 16.0, CBC w Diff Pending, WBC Pending, RBC Pending, Hgb Pending, Hct Pending, MCV Pending, MCH Pending, MCHC Pending, RDW Pending, Plt Count Pending, MPV Pending 04/14/18 1650: Anion Gap 12, Estimated GFR > 60, BUN/Creatinine Ratio 16.0, Troponin I < 0.01 04/14/18 1045: Troponin I < 0.01, TSH 0.814, Free T4 2.15 04/14/18 0813: Anion Gap 13, Estimated GFR > 60, BUN/Creatinine Ratio 16.7, Glucose 97, Calcium 9.6, Magnesium 1.8, Total Bilirubin 1.2, AST 25, ALT 36, Alkaline Phosphatase 64 , Troponin I < 0.01, Total Protein 6.7, Albumin 4.3, Globulin 2.4, Albumin/ Globulin Ratio 1.8, CBC w Diff NO MAN DIFF REQ, RBC 4.66, MCV 94.7, MCH 32.0 H, MCHC 33.8, RDW 12.1, MPV 6.7 L, Gran % 62.8, Lymphocytes % 26.9, Monocytes % 8.9, Eosinophils % 0.8, Basophils % 0.6, Absolute Granulocytes 6.6 H, Absolute Lymphocytes 2.8, Absolute Monocytes 0.9 H, Absolute Eosinophils 0.1, Absolute Basophils 0.1 Assessment/Plan Impression/Plan: 23-year-old with COPD underlying coronary artery disease admitted with shortness of breath and productive cough. Prior CAT scans suggest bronchiectasis with possibility of allergic bronchopulmonary aspergillosis. Note she is prone mold in the past which was not further identified. Recommendations: Sputum for C&S and for fungal studies. Continue steroids. Taper FiO2. Consult Acknowledgment - Thank you for your consult request.
--- NOTE | 2018-04-15 11:02 | PN- Cardiology ---
Subjective Subjective: Shortness of breath is improving. No chest pain. No palpitations. No diaphoresis. No nausea or vomiting. No lightheadedness or dizziness. Objective Vital Signs and I&Os Vital Signs Date Time Temp Pulse Resp B/P B/P Pulse O2 O2 Flow FiO2 Mean Ox Delivery Rate 04/15 1034 96 Nasal 2.0L Cannula 04/15 0904 90 122/54 04/15 0800 Nasal 2.0L Cannula 04/15 0712 98.7 82 18 108/66 96 Nasal Cannula 04/15 0000 95 Nasal 2.0L Cannula 04/14 2222 97.5 77 18 124/70 94 Nasal Cannula 04/14 2025 Nasal 2.0L Cannula 04/14 1638 97.8 83 20 122/60 95 Room Air 04/14 1627 Nasal 2.0L Cannula 04/14 1542 98.3 80 20 128/62 94 Nasal 2.0L Cannula 04/14 1154 95 Nasal 2.0L Cannula 04/14 1111 97.8 80 20 126/59 92 Room Air Intake & Output 04/15 1600 04/15 0800 04/15 0000 04/14 1600 04/14 0800 04/14 0000 Intake Total 100 582 Output Total Balance 100 582 Intake, IV 10 Intake, Oral 100 572 Number 0 Bowel Movements Patient 120 lb 125 lb Weight Weight Bed scale Reported by Patient Measurement Method Physical Exam: Gen: NAD HEENT: normal Lungs: Scattered rhonchi, normal resp. effort Heart: RRR, S1, S2, no murmurs Abdomen: Soft, nontender, no masses Extremities: No clubbing, cyanosis, or edema. Neuro: Alert and oriented x 3, cranial nerves intact Current Medications: Current Medications Sig/Nikky Start time Last Medication Dose Route Stop Time Status Admin Albuterol Sulfate 3 ML BID 04/14 2100 AC 04/15 INH 1030 Albuterol Sulfate 2 PUF Q4-6 PRN PRN 04/14 1345 AC INH Albuterol Sulfate 3 ML ONCE ONE 04/14 1200 DC 04/14 INH 04/14 1201 1154 Amlodipine Besylate 5 MG DAILY 04/15 09 AC 04/15 PO 0904 Aspirin Buffered 81 MG DAILY 04/15 09 AC 04/15 PO 0903 Atorvastatin Calcium 5 MG 1700 04/14 1700 AC 04/14 PO 1836 Azithromycin 500 MG DAILY 04/15 0900 AC 04/15 Sodium Chloride 250 ML IV 04/19 0959 0903 Budesonide/ 2 PUF BID 04/14 2100 AC 04/15 Formoterol Fumarate INH 0907 Enoxaparin Sodium 40 MG DAILY 04/14 1327 AC 04/15 SC 0905 Guaifenesin 600 MG BID PRN 04/14 1345 AC 04/15 PO 0905 Indapamide 1.25 MG 0800 04/15 0800 AC 04/15 PO 0905 Ipratropium [place] 2.5 ML BID 04/14 2100 AC 04/15 INH 1030 Methylprednisolone 40 MG Q12 04/14 2100 AC 04/15 IV 0906 Potassium Chloride 20 MEQ ONCE ONE 04/14 1945 CAN PO 04/14 194 Potassium Chloride 40 MEQ ONCE ONE 04/14 191 DC 04/14 PO 04/14 Potassium Chloride 40 MEQ ONCE ONE 04/14 1230 DC 04/14 PO 04/14 1231 1230 Tiotropium [place] 1 PUF DAILY 04/14 1332 AC 04/15 INH 0906 Results Last 48 Hrs of Labs/Mics: Laboratory Tests 04/15/18 0625: Anion Gap 14, Estimated GFR > 60, BUN/Creatinine Ratio 16.0, CBC w Diff NO MAN DIFF REQ, RBC 4.58, MCV 93.8, MCH 32.0 H, MCHC 34.1, RDW 12.3, MPV 7.2 L, Gran % 73.6, Lymphocytes % 22.2, Monocytes % 4.1, Eosinophils % 0, Basophils % 0.1, Absolute Granulocytes 4.7, Absolute Lymphocytes 1.4, Absolute Monocytes 0.3, Absolute Eosinophils 0, Absolute Basophils 0 04/14/18 1650: Anion Gap 12, Estimated GFR > 60, BUN/Creatinine Ratio 16.0, Troponin I < 0.01 04/14/18 1045: Troponin I < 0.01, TSH 0.814, Free T4 2.15 04/14/18 0813: Anion Gap 13, Estimated GFR > 60, BUN/Creatinine Ratio 16.7, Glucose 97, Calcium 9.6, Magnesium 1.8, Total Bilirubin 1.2, AST 25, ALT 36, Alkaline Phosphatase 64 , Troponin I < 0.01, Total Protein 6.7, Albumin 4.3, Globulin 2.4, Albumin/ Globulin Ratio 1.8, CBC w Diff NO MAN DIFF REQ, RBC 4.66, MCV 94.7, MCH 32.0 H, MCHC 33.8, RDW 12.1, MPV 6.7 L, Gran % 62.8, Lymphocytes % 26.9, Monocytes % 8.9, Eosinophils % 0.8, Basophils % 0.6, Absolute Granulocytes 6.6 H, Absolute Lymphocytes 2.8, Absolute Monocytes 0.9 H, Absolute Eosinophils 0.1, Absolute Basophils 0.1 Assessment/Plan Assessment/Plan Assessment: 1. History of CAD, status post stents 2 in 2010 2. Hypertension 3. Acute COPD exacerbation 4. Abnormal EKG with changes noted compared to prior EKG 5. Hypokalemia, improved Plan: * Ruled out for myocardial infarction * Treatment of COPD exacerbation as per medical team * Echocardiogram Continue telemetry? No
[2018-04-15 14:26] VITALS: BP 110/40
[2018-04-15 23:15] VITALS: BP 138/70
[2018-04-16 06:24] VITALS: BP 112/38
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
--- NOTE | 2018-04-16 08:49 | PN- Pulmonary ---
Subjective HPI/Critical Care Issues: Patient feels improved oxygenation and shortness of breath are improved Objective Current Medications: Current Medications Sig/Nikky Start time Last Medication Dose Route Stop Time Status Admin Albuterol Sulfate 3 ML BID 04/14 2100 AC 04/16 INH 0808 Albuterol Sulfate 2 PUF Q4-6 PRN PRN 04/14 1345 AC INH Amlodipine Besylate 5 MG DAILY 04/15 0900 AC 05 PO 0904 Aspirin Buffered 81 MG DAILY 04/15 0900 AC 04/15 PO 0903 Atorvastatin Calcium 5 MG 1700 04/14 1700 AC 04/15 PO 1646 Azithromycin 250 MG DAILY 04/16 0900 AC PO Azithromycin 500 MG DAILY 04/15 0900 DC 04/15 Sodium Chloride 250 ML IV 04/19 0959 0903 Budesonide/ 2 PUF BID 04/14 2100 AC 04/15 Formoterol Fumarate INH 2035 Enoxaparin Sodium 40 MG DAILY 04/14 1327 AC 04/15 SC 0905 Guaifenesin 600 MG BID PRN 04/14 1345 AC 04/15 PO 0905 Indapamide 1.25 MG 0800 04/15 0800 AC 04/16 PO 0807 Ipratropium [place] 2.5 ML BID 04/14 2100 AC 04/16 INH 0808 Methylprednisolone 40 MG Q12 04/14 2100 DC 04/15 IV 2035 Patient Medication 1 ED ONE ONE 04/15 1330 DC Teaching ED 04/15 1331 Prednisone 40 MG DAILY 04/16 0900 AC PO Tiotropium [place] 1 PUF DAILY 04/14 1332 AC 04/15 INH 0906 Vital Signs & I&O Last 24 Hrs of Vitals and I&O: Vital Signs Date Time Temp Pulse Resp B/P B/P Pulse O2 O2 Flow FiO2 Mean Ox Delivery Rate 04/16 0810 94 Nasal 1.0L Cannula 04/16 0624 97.9 81 16 112/38 91 Nasal 1.0L Cannula 04/16 0000 93 Nasal 1.0L Cannula 04/15 2315 97.9 83 18 138/70 95 Nasal Cannula 04/15 2045 93 Nasal 1.0L Cannula 04/15 1426 98.1 80 18 110/40 93 Nasal Cannula 04/15 1351 93 Nasal 1.0L Cannula 04/15 1034 96 Nasal 2.0L Cannula 04/15 0904 90 122/54 Intake & Output 04/16 1600 0516 0800 04/16 0000 Intake Total 100 240 Output Total Balance 100 240 Intake, Oral 100 240 Patient 122 lb Weight Weight Bed scale Measurement Method Since saturation 1 L 94% exam for chest shows diminished breath sounds are no wheezes cardiac exam shows regular S1 and S2 without murmurs Impression/Plan Impression/Plan Impression/Plan: 73-year-old admitted with exacerbation of COPD clinically improved Recommendations: Sputum for C&S and for fungal studies. DC IV Solu-Medrol begin oral prednisone. Taper FiO2 his saturations allow.
--- NOTE | 2018-04-16 13:39 | Patient Discharge Instructions ---
Discharge Instructions General Discharge Information Special Instructions: Please follow up with your PCP within seven days. Please follow up with your security tech within 1-2 weeks. If your symptoms worsen, please call you PCP, you likely will need to be started on an antibiotic. Acute Coronary Syndrome Inclusion Criteria At DC or during hospital stay patient has or had the following: ACS DIAGNOSIS No Discharge Core Measures Meds if any: Prescribed or Continued at Discharge Meds if any: NOT Prescribed or Continued at Discharge Congestive Heart Failure Inclusion Criteria At DC or during hospital stay patient has or had the following: CHF DIAGNOSIS No Discharge Core Measures Meds if any: Prescribed or Continued at Discharge Meds if any: NOT Prescribed or Continued at Discharge Cerebrovascular accident Inclusion Criteria At DC or during hospital stay patient has or had the following: CVA/TIA Diagnosis No Discharge Core Measures Meds if any: Prescribed or Continued at Discharge Meds if any: NOT Prescribed or Continued at Discharge Venous thromboembolism Inclusion Criteria VTE Diagnosis No VTE Type NONE VTE Confirmed by (Test) NONE Discharge Core Measures - Per Current guidelines, there needs to be overlap - treatment for the first 5 days of Warfarin therapy. - If discharged on Warfarin prior to 5 days of - overlap therapy, the patient will need to be - assessed for post discharge needs including - *Post discharge parental anticoagulation - *Warfarin and/or parental anticoagulation education - *Follow up date to check INR post discharge At least 5 days overlap therapy as Inpatient No Meds if any: Prescribed or Continued at Discharge Note: Overlap Therapy is Warfarin and Anticoagulant Meds if any: NOT Prescribed or Continued at Discharge
--- NOTE | 2018-04-16 13:40 | PN- Cardiology ---
Subjective Subjective: Clinically improved. Respiratory status improving. No new cardiac symptoms. Objective Vital Signs and I&Os Vital Signs Date Time Temp Pulse Resp B/P B/P Pulse O2 O2 Flow FiO2 Mean Ox Delivery Rate 04/16 0859 97.9 81 16 130/60 04/16 0810 94 Nasal 1.0L Cannula 04/16 0800 94 Nasal 1.0L Cannula 04/16 0624 97.9 81 16 112/38 91 Nasal 1.0L Cannula 04/16 0000 93 Nasal 1.0L Cannula 04/15 2315 97.9 83 18 138/70 95 Nasal Cannula 04/15 2045 93 Nasal 1.0L Cannula 04/15 1426 98.1 80 18 110/40 93 Nasal Cannula 04/15 1351 93 Nasal 1.0L Cannula Intake & Output 04/16 1600 04/16 0800 04/16 0000 04/15 1600 04/15 0800 04/15 0000 Intake Total 586 704 9679 100 582 Output Total Balance 758 080 0761 100 582 Intake, IV 320 10 Intake, Oral 100 240 700 100 572 Number 0 Bowel Movements Patient 122 lb 120 lb Weight Weight Bed scale Bed scale Measurement Method Physical Exam: Gen: NAD HEENT: normal Lungs: Scattered rhonchi, normal resp. effort Heart: RRR, S1, S2, no murmurs Abdomen: Soft, nontender, no masses Extremities: No clubbing, cyanosis, or edema. Neuro: Alert and oriented x 3, cranial nerves intact Current Medications: Current Medications Sig/Nikky Start time Last Medication Dose Route Stop Time Status Admin Albuterol Sulfate 3 ML BID 04/14 2100 AC 04/16 INH 0808 Albuterol Sulfate 2 PUF Q4-6 PRN PRN 04/14 1345 AC INH Amlodipine Besylate 5 MG DAILY 04/15 0900 AC 04/16 PO 0859 Aspirin Buffered 81 MG DAILY 04/15 0900 AC 04/16 PO 0859 Atorvastatin Calcium 5 MG 1700 04/14 1700 AC 04/15 PO 1646 Azithromycin 250 MG DAILY 04/16 0900 AC 04/16 PO 0859 Azithromycin 500 MG DAILY 04/15 0900 DC 04/15 Sodium Chloride 250 ML IV 04/19 0959 0903 Budesonide/ 2 PUF BID 04/14 2100 AC 04/16 Formoterol Fumarate INH 0859 Enoxaparin Sodium 40 MG DAILY 05/14 1327 04/16 SC 0900 Guaifenesin 600 MG BID PRN 04/14 1345 AC 04/15 PO 0905 Indapamide 1.25 MG 0800 04/15 0800 AC 04/16 PO 0807 Ipratropium [place] 2.5 ML BID 04/14 2100 AC 04/16 INH 0808 Methylprednisolone 40 MG Q12 04/14 2100 DC 04/15 IV 2035 Prednisone 40 MG DAILY 04/16 0900 AC 04/16 PO 0859 Tiotropium [place] 1 PUF DAILY 04/14 1332 04/16 INH 0858 Results Last 48 Hrs of Labs/Mics: Laboratory Tests 04/16/18 0705: Anion Gap 12, Estimated GFR > 60, BUN/Creatinine Ratio 21.7 04/15/18 1612: Sodium Cancelled, Potassium Cancelled, Chloride Cancelled, Carbon Dioxide Cancelled, Anion Gap Cancelled, BUN Cancelled, Creatinine Cancelled, BUN/ Creatinine Ratio Cancelled, CBC w Diff Cancelled, WBC Cancelled, RBC Cancelled, Hgb Cancelled, Hct Cancelled, MCV Cancelled, MCH Cancelled, MCHC Cancelled, RDW Cancelled, Plt Count Cancelled, MPV Cancelled 04/15/18 0625: Anion Gap 14, Estimated GFR > 60, BUN/Creatinine Ratio 16.0, CBC w Diff NO MAN DIFF REQ, RBC 4.58, MCV 93.8, MCH 32.0 H, MCHC 34.1, RDW 12.3, MPV 7.2 L, Gran % 73.6, Lymphocytes % 22.2, Monocytes % 4.1, Eosinophils % 0, Basophils % 0.1, Absolute Granulocytes 4.7, Absolute Lymphocytes 1.4, Absolute Monocytes 0.3, Absolute Eosinophils 0, Absolute Basophils 0 04/14/18 1650: Anion Gap 12, Estimated GFR > 60, BUN/Creatinine Ratio 16.0, Troponin I < 0.01 Assessment/Plan Assessment/Plan Assessment: 1. History of CAD, status post stents 2 in 2010 2. Hypertension 3. Acute COPD exacerbation 4. Abnormal EKG with changes noted compared to prior EKG 5. Hypokalemia, improved Plan: * Ruled out for myocardial infarction * Treatment of COPD exacerbation as per medical team * Echocardiogram pending Continue telemetry? No
[2018-04-16 14:31] VITALS: BP 120/54
[2018-04-16 22:07] VITALS: BP 120/78
[2018-04-17 05:51] VITALS: BP 102/52
[2018-04-17] MEDS ORDERED: PREDNISONE10 M2 PO (07:19)
--- NOTE | 2018-04-17 07:21 | PN- Housestaff ---
Subjective Follow-up For: Acute exacerbation of COPD. Subjective: Ms Monaco was seen and examined this morning. She is resting comfortably in bed. She denies any issues overnight. States she was able to sleep well. Has been tolerating PO intake well. Denies any chills, nausea vomiting. Still continues to endorse a mild nonproductive cough. Review of Systems Constitutional: Reports: see HPI. Objective Last 24 Hrs of Vital Signs/I&O Vital Signs Date Time Temp Pulse Resp B/P B/P Pulse O2 O2 Flow FiO2 Mean Ox Delivery Rate 04/17 0843 69 102/52 04/17 0815 92 Nasal 1.0L Cannula 04/17 0800 Nasal 1.0L Cannula 04/17 0551 98.9 69 20 102/52 97 04/17 0000 Nasal 1.0L Cannula 04/16 2207 97.7 61 16 120/78 95 04/16 2031 95 Nasal 1.0L Cannula 04/16 1600 Nasal 1.0L Cannula 04/16 1431 98.8 85 16 120/54 96 Nasal Cannula Intake & Output 04/17 1600 04/17 0800 04/17 0000 Intake Total 480 Output Total Balance 480 Intake, Oral 480 Patient 54.913 kg Weight Physical Exam General Appearance: Alert, Oriented X3, Cooperative HEENT: Mucous Membr. moist/pink Cardiovascular: Normal S2 Lungs: Normal Air Movement Abdomen: Normal Bowel Sounds, Soft, No Tenderness Neurological: Normal Gait, Normal Speech Extremities: No Edema, Normal Pulses, No Tenderness/Swelling Current Medications: Current Medications Sig/Nikky Start time Last Medication Dose Route Stop Time Status Admin Albuterol Sulfate 3 ML BID 04/14 2100 AC 04/17 INH 0814 Albuterol Sulfate 2 PUF Q4-6 PRN PRN 04/14 1345 AC INH Amlodipine Besylate 5 MG DAILY 04/15 09 AC 04/17 PO 0843 Aspirin Buffered 81 MG DAILY 04/15 09 AC 04/17 PO 0843 Atorvastatin Calcium 5 MG 1700 04/14 1700 AC 04/16 PO 1557 Azithromycin 250 MG DAILY 04/16 0900 AC 04/17 PO 0843 Budesonide/ 2 PUF BID 04/14 2100 AC 04/17 Formoterol Fumarate INH 0843 Enoxaparin Sodium 40 MG DAILY 04/14 1327 AC 04/17 SC 0842 Guaifenesin 600 MG BID PRN 04/14 1345 AC 04/15 PO 0905 Indapamide 1.25 MG 0800 04/15 0800 AC 04/17 PO 0842 Ipratropium [place] 2.5 ML BID 04/14 2100 AC 04/17 INH 0814 Prednisone 30 MG DAILY 04/18 0900 AC PO Prednisone 40 MG DAILY 04/16 0900 DC 04/17 PO 0843 Tiotropium [place] 1 PUF DAILY 04/14 1332 AC 04/17 INH 0842 Orders ECHO Findings: MALENA MONACO Age: 73 : 1945 Gender: F Exam Date: 04/15/2018 20:02 Exam Location: [place] Ht (in): 67 Wt (lb): 123 BSA: 1.62 BP: 122 / 54 Ordering Physician: Aurora Galo MD Referring Physician: Justino Cortez MD Technologist: Jyoti Drake RDCS Room Number: 180-01 Indications: HEART FAILURE Rhythm: Sinus Technical Quality: Fair FINDINGS Left Ventricle Normal global left ventricular size, wall thickness, systolic function with no obvious regional wall motion abnormalities. Normal left ventricular ejection fraction estimated at 60-65%. Right Ventricle Normal right ventricular size and function. Right Atrium Normal right atrial size. Left Atrium Normal left atrial size. Mitral Valve Moderate thickening/calcification of the anterior mitral valve leaflet. Mild mitral valve prolapse. [id number] mitral regurgitation. Aortic Valve Diffuse thickening of the aortic valve cusps with reduced excursion. Mild aortic stenosis. Tricuspid Valve Tricuspid valve not well visualized, grossly normal. Mild-to- moderate tricuspid regurgitation. Right ventricular systolic pressure estimated at 32 mmHg. Pulmonic Valve Pulmonic valve not well visualized. Pericardium No pericardial effusion. Great Vessels Normal size aortic root and proximal ascending aorta. CONCLUSIONS 1. Mild aortic stenosis is present with a peak gradient of 19 mmHg and as estimated EDD of 1.9 cm2 2. Thickening and calcification of the mitral leaflets is present with mild bileaflet prolapse and mild to moderate mitral insufficiency. 3. There is no pericardial fluid present. 4. The left ventricular chamber size and systolic function are normal 5. Mild to moderate tricuspid insufficiency is present with no significant pulmonary hypertension. Yan Hernandez M.D. (Electronically Signed) Final Date: 17 Apr 2018 09:57 MEASUREMENTS (Male / Female) Normal Values 2D ECHO LV Diastolic Diameter PLAX 3.5 cm 4.2 - 5.9 / 3.9 - 5.3 cm LV Systolic Diameter PLAX 2.3 cm 2.1 - 4.0 cm LV Fractional Shortening PLAX 34.3 % 25 - 46 % LV Ejection Fraction 2D Teich 64.4 % IVS Diastolic Thickness 0.8 cm LVPW Diastolic Thickness 1.1 cm LV Relative Wall Thickness 0.5 RV Internal Dim ED PLAX 2.5 cm 1.9 - 3.8 cm LVOT Diameter 2.2 cm Aortic Root Diameter 2.9 cm LA Systolic Diameter LX 2.8 cm 3.0 - 4.0 / 2.7 - 3.8 cm LA Volume 32.0 cm 18 - 58 / 22 - 52 cm DOPPLER AV Peak Velocity 218.0 cm/s AV Peak Gradient 19.0 mmHg AV Mean Velocity 147.0 cm/s AV Mean Gradient 10.0 mmHg AV Velocity Time Integral 47.5 cm LVOT Peak Velocity 102.0 cm/s LVOT Peak Gradient 4.2 mmHg LVOT Mean Velocity 63.2 cm/s LVOT Mean Gradient 2.0 mmHg LVOT Velocity Time Integral 22.0 cm LVOT Stroke Volume 83.6 cm AV Area Cont Eq vti 1.8 cm AV Area Cont Eq pk 1.8 cm MV Peak Velocity 138.0 cm/s MV Peak Gradient 7.6 mmHg MV Mean Velocity 87.1 cm/s MV Mean Gradient 4.0 mmHg Mitral E Point Velocity 75.5 cm/s Mitral A Point Velocity 96.7 cm/s Mitral E to A Ratio 0.8 MV PHT Velocity 113.0 cm/s MV Deceleration [place] 428.0 cm/s MV Pressure Half Time 79.2 ms MV Area PHT 2.8 cm MV Deceleration Time 333.0 ms TR Peak Velocity 280.0 cm/s TR Peak Gradient 31.4 mmHg Right Atrial Pressure 5.0 mmHg Pulmonary Artery Systolic Pressu 36.4 mmHg Right Ventricular Systolic Press 36.4 mmHg PV Peak Velocity 139.0 cm/s PV Peak Gradient 7.7 mmHg PV Mean Velocity 103.0 cm/s PV Mean Gradient 5.0 mmHg PV Velocity Time Integral 36.5 cm LV E' Lateral Velocity 8.7 cm/s Mitral E to LV E' Lateral Ratio 8.7 LV E' Septal Velocity 7.1 cm/s Mitral E to LV E' Septal Ratio 10.6 DICTATED BY: Johann Hernandez MD Assessment/Plan Assessment: Ms. Monaco is a 73 yo lady with past medical history significant for COPD not on home oxygen, CAD s/p 2 stent placement in 2010, hypertension, hyperlipidemia who presented to ED with complaint of increasing shortness of breath. While in the emergency department she received 1 dose of Augmentin. She is currently admitted to the telemetry service and being managed for the following problems Problem list: Acute on chronic respiratory failure with hypoxemia AECOPD Hypokalemia H/x of CAD, HTN, Hyperlipidemia Plan: Continue PO azithromycin for COPD exacerbation, Day 4. Continue PO prednisone, 40 mg--> 30 mg 04/18 Follow-up sputum cultures and sensitivities. Initial set of troponins and EKGs have been within normal limits and she's been ruled out. We can disconitnue telemetry. Hypokalemia has resolved. Continue home medications :aspirin, amlodipine, inhalers, antihypertensives. Incentive spirometer. Discharge planning likely can consider 04/18 if not acute events endorsed. DVT prophylaxis with Lovenox. Patient is Full code Problem List: 1. COPD exacerbation Pain Ratin Pain Location: No Pain Pain Goal: Remain pain free Pain Plan: Tylenol PRN Tomorrow's Labs & Rationales: No Labs - May be discharged
--- NOTE | 2018-04-17 09:58 | ECHOCARDIOGRAM REPORT ---
MALENA NOVOA Age: 73 : 1945 Gender: F Exam Date: 04/15/2018 20:02 Exam Location: 1 [place] Ht (in): 67 Wt (lb): 123 BSA: 1.62 BP: 122 / 54 Ordering Physician: Aurora Galo MD Referring Physician: Justino Cortez MD Technologist: Jyoti Drake [facility] Room Number: [id number] Indications: HEART FAILURE Rhythm: Sinus Technical Quality: Fair FINDINGS Left Ventricle Normal global left ventricular size, wall thickness, systolic function with no obvious regional wall motion abnormalities. Normal left ventricular ejection fraction estimated at 60-65%. Right Ventricle Normal right ventricular size and function. Right Atrium Normal right atrial size. Left Atrium Normal left atrial size. Mitral Valve Moderate thickening/calcification of the anterior mitral valve leaflet. Mild mitral valve prolapse. [id number] mitral regurgitation. Aortic Valve Diffuse thickening of the aortic valve cusps with reduced excursion. Mild aortic stenosis. Tricuspid Valve Tricuspid valve not well visualized, grossly normal. Mild-to- moderate tricuspid regurgitation. Right ventricular systolic pressure estimated at 32 mmHg. Pulmonic Valve Pulmonic valve not well visualized. Pericardium No pericardial effusion. Great Vessels Normal size aortic root and proximal ascending aorta. CONCLUSIONS 1. Mild aortic stenosis is present with a peak gradient of 19 mmHg and as estimated EDD of 1.9 cm2 2. Thickening and calcification of the mitral leaflets is present with mild bileaflet prolapse and mild to moderate mitral insufficiency. 3. There is no pericardial fluid present. 4. The left ventricular chamber size and systolic function are normal 5. Mild to moderate tricuspid insufficiency is present with no significant pulmonary hypertension. Yan Hernandez M.D. (Electronically Signed) Final Date: 17 Apr 2018 09:57 MEASUREMENTS (Male / Female) Normal Values 2D ECHO LV Diastolic Diameter PLAX 3.5 cm 4.2 - 5.9 / 3.9 - 5.3 cm LV Systolic Diameter PLAX 2.3 cm 2.1 - 4.0 cm LV Fractional Shortening PLAX 34.3 % 25 - 46 % LV Ejection Fraction 2D Teich 64.4 % IVS Diastolic Thickness 0.8 cm LVPW Diastolic Thickness 1.1 cm LV Relative Wall Thickness 0.5 RV Internal Dim ED PLAX 2.5 cm 1.9 - 3.8 cm LVOT Diameter 2.2 cm Aortic Root Diameter 2.9 cm LA Systolic Diameter LX 2.8 cm 3.0 - 4.0 / 2.7 - 3.8 cm LA Volume 32.0 cm 18 - 58 / 22 - 52 cm DOPPLER AV Peak Velocity 218.0 cm/s AV Peak Gradient 19.0 mmHg AV Mean Velocity 147.0 cm/s AV Mean Gradient 10.0 mmHg AV Velocity Time Integral 47.5 cm LVOT Peak Velocity 102.0 cm/s LVOT Peak Gradient 4.2 mmHg LVOT Mean Velocity 63.2 cm/s LVOT Mean Gradient 2.0 mmHg LVOT Velocity Time Integral 22.0 cm LVOT Stroke Volume 83.6 cm AV Area Cont Eq vti 1.8 cm AV Area Cont Eq pk 1.8 cm MV Peak Velocity 138.0 cm/s MV Peak Gradient 7.6 mmHg MV Mean Velocity 87.1 cm/s MV Mean Gradient 4.0 mmHg Mitral E Point Velocity 75.5 cm/s Mitral A Point Velocity 96.7 cm/s Mitral E to A Ratio 0.8 MV PHT Velocity 113.0 cm/s MV Deceleration [place] 428.0 cm/s MV Pressure Half Time 79.2 ms MV Area PHT 2.8 cm MV Deceleration Time 333.0 ms TR Peak Velocity 280.0 cm/s TR Peak Gradient 31.4 mmHg Right Atrial Pressure 5.0 mmHg Pulmonary Artery Systolic Pressu 36.4 mmHg Right Ventricular Systolic Press 36.4 mmHg PV Peak Velocity 139.0 cm/s PV Peak Gradient 7.7 mmHg PV Mean Velocity 103.0 cm/s PV Mean Gradient 5.0 mmHg PV Velocity Time Integral 36.5 cm LV E' Lateral Velocity 8.7 cm/s Mitral E to LV E' Lateral Ratio 8.7 LV E' Septal Velocity 7.1 cm/s Mitral E to LV E' Septal Ratio 10.6
--- NOTE | 2018-04-17 10:32 | PN- Cardiology ---
Subjective Subjective: Shortness of breath improving. No chest pain. No palpitations. No diaphoresis. No nausea or vomiting. No lightheadedness or dizziness. Objective Vital Signs and I&Os Vital Signs Date Time Temp Pulse Resp B/P B/P Pulse O2 O2 Flow FiO2 Mean Ox Delivery Rate 04/17 0843 69 102/52 04/17 0815 92 Nasal 1.0L Cannula 04/17 0800 Nasal 1.0L Cannula 04/17 0551 98.9 69 20 102/52 97 04/17 0000 Nasal 1.0L Cannula 04/16 2207 97.7 61 16 120/78 95 04/16 2031 95 Nasal 1.0L Cannula 04/16 1600 Nasal 1.0L Cannula 04/16 1431 98.8 85 16 120/54 96 Nasal Cannula Intake & Output 04/17 0800 04/17 0000 04/16 1600 04/16 0800 04/16 0000 Intake Total 480 500 100 240 Output Total Balance 480 500 100 240 Intake, Oral 480 500 100 240 Patient 121 lb 122 lb Weight Weight Bed scale Measurement Method Physical Exam: Gen: NAD HEENT: normal Lungs: Scattered rhonchi, normal resp. effort Heart: RRR, S1, S2, no murmurs Abdomen: Soft, nontender, no masses Extremities: No clubbing, cyanosis, or edema. Neuro: Alert and oriented x 3, cranial nerves intact Current Medications: Current Medications Sig/Nikky Start time Last Medication Dose Route Stop Time Status Admin Albuterol Sulfate 3 ML BID 04/14 2100 AC 04/17 INH 0814 Albuterol Sulfate 2 PUF Q4-6 PRN PRN 04/14 1345 AC INH Amlodipine Besylate 5 MG DAILY 04/15 09 AC 04/17 PO 0843 Aspirin Buffered 81 MG DAILY 04/15 09 AC 04/17 PO 0843 Atorvastatin Calcium 5 MG 1700 04/14 1700 AC 04/16 PO 1557 Azithromycin 250 MG DAILY 04/16 09 AC 04/17 PO 0843 Budesonide/ 2 PUF BID 04/14 2100 AC 04/17 Formoterol Fumarate INH 0843 Enoxaparin Sodium 40 MG DAILY 04/14 1327 AC 04/17 SC 0842 Guaifenesin 600 MG BID PRN 04/14 1345 AC 04/15 PO 0905 Indapamide 1.25 MG 0804/15 0800 AC 04/17 PO 0842 Ipratropium [place] 2.5 ML BID 04/14 2100 AC 04/17 INH 0814 Prednisone 40 MG DAILY 04/16 0900 AC 04/17 PO 0843 Tiotropium [place] 1 PUF DAILY 04/14 1332 AC 04/17 INH 0842 Results Last 48 Hrs of Labs/Mics: Laboratory Tests 04/16/18 0705: Anion Gap 12, Estimated GFR > 60, BUN/Creatinine Ratio 21.7 04/15/18 1612: Sodium Cancelled, Potassium Cancelled, Chloride Cancelled, Carbon Dioxide Cancelled, Anion Gap Cancelled, BUN Cancelled, Creatinine Cancelled, BUN/ Creatinine Ratio Cancelled, CBC w Diff Cancelled, WBC Cancelled, RBC Cancelled, Hgb Cancelled, Hct Cancelled, MCV Cancelled, MCH Cancelled, MCHC Cancelled, RDW Cancelled, Plt Count Cancelled, MPV Cancelled Recent Imaging Studies: Echocardiogram 04/17/18: 1. Mild aortic stenosis is present with a peak gradient of 19 mmHg and as estimated EDD of 1.9 cm2 2. Thickening and calcification of the mitral leaflets is present with mild bileaflet prolapse and mild to moderate mitral insufficiency. 3. There is no pericardial fluid present. 4. The left ventricular chamber size and systolic function are normal 5. Mild to moderate tricuspid insufficiency is present with no significant pulmonary hypertension. Assessment/Plan Assessment/Plan Assessment: 1. History of CAD, status post stents 2 in 2010 2. Hypertension 3. Acute COPD exacerbation 4. Abnormal EKG with changes noted compared to prior EKG 5. Hypokalemia, improved 6. Normal left ventricular function on echocardiogram with mild aortic stenosis Plan: * Continue current cardiac medications * Follow up in the office with Dr. Hernandez 2 weeks after discharge Continue telemetry? No
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
[2018-04-17 14:33] VITALS: BP 134/64
--- NOTE | 2018-04-17 18:11 | PN- Pulmonary ---
Subjective HPI/Critical Care Issues: Doing stable still wheezing sat on oxygen 88 percent Objective Current Medications: Current Medications Sig/Nikky Start time Last Medication Dose Route Stop Time Status Admin Albuterol Sulfate 3 ML BID 04/14 2100 AC 04/17 INH 0814 Albuterol Sulfate 2 PUF Q4-6 PRN PRN 04/14 1345 AC INH Amlodipine Besylate 5 MG DAILY 04/15 0900 AC 04/17 PO 0843 Aspirin Buffered 81 MG DAILY 04/15 0900 AC 04/17 PO 0843 Atorvastatin Calcium 5 MG 1700 04/14 1700 AC 04/17 PO 1624 Azithromycin 250 MG DAILY 04/16 0900 AC 04/17 PO 0843 Budesonide/ 2 PUF BID 04/14 2100 AC 04/17 Formoterol Fumarate INH 0843 Enoxaparin Sodium 40 MG DAILY 04/14 1327 AC 04/17 SC 0842 Guaifenesin 600 MG BID PRN 04/14 1345 AC 04/15 PO 0905 Indapamide 1.25 MG 0800 04/15 0800 AC 04/17 PO 0842 Ipratropium [place] 2.5 ML BID 04/14 2100 AC 04/17 INH 0814 Patient Medication 1 ED ONE ONE 04/17 1645 DC 04/17 Teaching ED 04/17 1646 1656 Prednisone 30 MG DAILY 04/18 0900 AC PO Prednisone 40 MG DAILY 04/16 0900 DC 04/17 PO 0843 Tiotropium [place] 1 PUF DAILY 04/14 1332 AC 04/17 INH 0842 Vital Signs & I&O Last 24 Hrs of Vitals and I&O: Vital Signs Date Time Temp Pulse Resp B/P B/P Pulse O2 O2 Flow FiO2 Mean Ox Delivery Rate 04/17 1433 98.3 82 18 134/64 93 Nasal 1.0L Cannula 04/17 0843 69 102/52 04/17 0815 92 Nasal 1.0L Cannula 04/17 0800 Nasal 1.0L Cannula 04/17 0551 98.9 69 20 102/52 97 04/17 0000 Nasal 1.0L Cannula 04/16 2207 97.7 61 16 120/78 95 04/16 2031 95 Nasal 1.0L Cannula Intake & Output 04/17 1600 04/17 0800 04/17 0000 Intake Total 600 480 Output Total Balance 600 480 Intake, Oral 600 480 Number 1 Bowel Movements Patient 121 lb Weight Laboratory Tests 04/16 705 Chemistry Sodium (137 - 145 mmol/L) 132 L Potassium (3.5 - 5.1 mmol/L) 4.2 Chloride (98 - 107 mmol/L) 88 L Carbon Dioxide (22 - 30 mmol/L) 33 H Anion Gap (5 - 16) 12 BUN (7 - 17 mg/dL) 13 Creatinine (0.5 - 1.0 mg/dL) 0.6 Estimated GFR (>60 ml/min) > 60 BUN/Creatinine Ratio (7 - 25 %) 21.7 Microbiology Date/Time Procedure - Status Source Growth 04/17 1402 Respiratory Culture - COLB LOWER RESP 04/17 1402 Gram Stain - COLB LOWER RESP 04/15 1224 Respiratory Culture - CAN LOWER RESP Cancelled: SPECIMEN NOT RECEIVED IN LABORATORY 04/15 1224 Gram Stain - CAN LOWER RESP Cancelled: SPECIMEN NOT RECEIVED IN LABORATORY Laboratory Tests 04/16 705 Chemistry Sodium (137 - 145 mmol/L) 132 L Potassium (3.5 - 5.1 mmol/L) 4.2 Chloride (98 - 107 mmol/L) 88 L Carbon Dioxide (22 - 30 mmol/L) 33 H Anion Gap (5 - 16) 12 BUN (7 - 17 mg/dL) 13 Creatinine (0.5 - 1.0 mg/dL) 0.6 Estimated GFR (>60 ml/min) > 60 BUN/Creatinine Ratio (7 - 25 %) 21.7 Microbiology Date/Time Procedure - Status Source Growth 04/17 1402 Respiratory Culture - COLB LOWER RESP 04/17 1402 Gram Stain - COLB LOWER RESP 04/15 1224 Respiratory Culture - CAN LOWER RESP Cancelled: SPECIMEN NOT RECEIVED IN LABORATORY 04/15 1224 Gram Stain - CAN LOWER RESP Cancelled: SPECIMEN NOT RECEIVED IN LABORATORY Impression/Plan Impression/Plan Impression/Plan: 73-year-old admitted with exacerbation of COPD clinically improved Now still has a need for oxygen PLAN wean oxygen if erika cont meds cont slow steroid taper will follow
[2018-04-17 22:08] VITALS: BP 118/80
[2018-04-18 06:23] VITALS: BP 118/67
--- NOTE | 2018-04-18 07:14 | PN- Housestaff ---
See Addendum Subjective Follow-up For: AECOPD Subjective: Mrs. Monaco was seen and examined this morning. She is resting comfortably in bed. Denies any issues overnight. States that she was able to get somre rest. She also endorses that her electricity has at home. She denies any fever, chills, nausea, vomiting. Review of Systems Constitutional: Reports: see HPI. Objective Last 24 Hrs of Vital Signs/I&O Vital Signs Date Time Temp Pulse Resp B/P B/P Pulse O2 O2 Flow FiO2 Mean Ox Delivery Rate 04/18 0853 94 Nasal 1.0L Cannula 04/18 0820 82 118/67 04/18 0800 Nasal 1.0L Cannula 04/18 0623 98.0 82 20 118/67 95 04/17 2223 Nasal 1.0L Cannula 04/17 2208 98.1 65 22 118/80 90 04/17 2033 95 Nasal 1.0L Cannula 04/17 1433 98.3 82 18 134/64 93 Nasal 1.0L Cannula Intake & Output 04/18 1600 04/18 0800 04/18 0000 Intake Total 50 Output Total Balance 50 Intake, Oral 50 Patient 55.055 kg Weight Physical Exam General Appearance: Alert, Oriented X3, Cooperative Cardiovascular: Regular Rate, Normal S1, Normal S2 Lungs: Clear to Auscultation, Increased Air movment Abdomen: Normal Bowel Sounds, Soft, No Tenderness Neurological: Normal Gait, Normal Speech, Strength at 5/5 X4 Ext Extremities: No Edema Current Medications: Current Medications Sig/Nikky Start time Last Medication Dose Route Stop Time Status Admin Albuterol Sulfate 3 ML BID 04/14 2100 AC 04/18 INH 0826 Albuterol Sulfate 2 PUF Q4-6 PRN PRN 04/14 1345 AC INH Amlodipine Besylate 5 MG DAILY 04/15 09 AC 04/18 PO 0820 Aspirin Buffered 81 MG DAILY 04/15 09 AC 04/18 PO 0820 Atorvastatin Calcium 5 MG 1700 04/14 1700 AC 04/17 PO 1624 Azithromycin 250 MG DAILY 04/16 09 AC 04/18 PO 0820 Budesonide/ 2 PUF BID 04/14 2100 AC 04/18 Formoterol Fumarate INH 0819 Enoxaparin Sodium 40 MG DAILY 04/14 1327 AC 04/18 SC 0820 Guaifenesin 600 MG BID PRN 04/14 1345 AC 04/15 PO 0905 Indapamide 1.25 MG 0800 04/15 0800 AC 04/18 PO 0820 Ipratropium [place] 2.5 ML BID 04/14 2100 AC 04/17 INH 0814 Patient Medication 1 ED ONE ONE 04/17 1645 DC 04/17 Teaching ED 04/17 1646 1656 Prednisone 30 MG DAILY 04/18 0900 AC 04/18 PO 0951 Prednisone 40 MG DAILY 04/16 0900 DC 04/17 PO 0843 Tiotropium [place] 1 PUF DAILY 04/14 1332 AC 04/18 INH 0820 Last 24 Hrs of Lab/Sea Results Last 24 Hrs of Labs/Mics: Microbiology 04/17 1402 LOWER RESP: Respiratory Culture - COLB 04/17 1402 LOWER RESP: Gram Stain - COLB Assessment/Plan Assessment: Ms. Monaco is a 73 yo lady with past medical history significant for COPD not on home oxygen, CAD s/p 2 stent placement in 2010, hypertension, hyperlipidemia who presented to ED with complaint of increasing shortness of breath. While in the emergency department she received 1 dose of Augmentin. She is currently admitted to the telemetry service and being managed for the following problems Problem list: Acute on chronic respiratory failure with hypoxemia AECOPD Hypokalemia H/x of CAD, HTN, Hyperlipidemia Plan: Continue PO azithromycin for COPD exacerbation, Day 5. Continue PO prednisone, 30 mg Follow-up sputum cultures and sensitivities, has been unable to give us a sample. Initial set of troponins and EKGs have been within normal limits and she's been ruled out. We can disconitnue telemetry. Hypokalemia has resolved. Continue home medications :aspirin, amlodipine, inhalers, antihypertensives. Incentive spirometer. Discharge planning DVT prophylaxis with Lovenox. Patient is Full code Problem List: 1. COPD exacerbation Pain Ratin Pain Location: No Pain Pain Goal: Remain pain free Pain Plan: Tylenol PRN Tomorrow's Labs & Rationales: No Labs
[2018-04-18] MEDS ORDERED: PREDNISONE10 M2 PO ×2 (09:48→14:47)
--- NOTE | 2018-04-18 13:22 | PN- Pulmonary ---
Subjective HPI/Critical Care Issues: Mrs. Monaco was seen and examined this morning. She is resting comfortably in bed. Denies any issues overnight. States that she was able to get somre rest. She also endorses that her electricity has at home. She denies any fever, chills, nausea, vomiting. Review of Systems Constitutional: Reports: see HPI. Objective Current Medications: Current Medications Sig/Nikky Start time Last Medication Dose Route Stop Time Status Admin Albuterol Sulfate 3 ML BID 04/14 2100 AC 04/18 INH 0826 Albuterol Sulfate 2 PUF Q4-6 PRN PRN 04/14 1345 AC INH Amlodipine Besylate 5 MG DAILY 04/15 0900 AC 04/18 PO 0820 Aspirin Buffered 81 MG DAILY 04/15 0900 AC 04/18 PO 0820 Atorvastatin Calcium 5 MG 1700 04/14 1700 AC 04/17 PO 1624 Azithromycin 250 MG DAILY 04/16 0900 DC 04/18 PO 0820 Budesonide/ 2 PUF BID 04/14 2100 AC 04/18 Formoterol Fumarate INH 0819 Enoxaparin Sodium 40 MG DAILY 04/14 1327 AC 04/18 SC 0820 Guaifenesin 600 MG BID PRN 04/14 1345 AC 04/15 PO 0905 Indapamide 1.25 MG 0800 04/15 0800 AC 04/18 PO 0820 Ipratropium [place] 2.5 ML BID 04/14 2100 AC 04/18 INH 0826 Patient Medication 1 ED ONE ONE 04/17 1645 DC 04/17 Teaching ED 04/17 1646 1656 Prednisone 30 MG DAILY 04/18 0900 AC 04/18 PO 0951 Prednisone 40 MG DAILY 04/16 0900 DC 04/17 PO 0843 Tiotropium [place] 1 PUF DAILY 04/14 1332 AC 04/18 INH 0820 Microbiology Date/Time Procedure - Status Source Growth 04/17 1402 Respiratory Culture - CAN LOWER RESP Cancelled: SPECIMEN NOT RECEIVED IN LABORATORY 04/17 140 Gram Stain - CAN LOWER RESP Cancelled: SPECIMEN NOT RECEIVED IN LABORATORY Vital Signs & I&O Last 24 Hrs of Vitals and I&O: Vital Signs Date Time Temp Pulse Resp B/P B/P Pulse O2 O2 Flow FiO2 Mean Ox Delivery Rate 04/18 0853 94 Nasal 1.0L Cannula 04/18 0820 82 118/67 04/18 0800 Nasal 1.0L Cannula 04/18 0623 98.0 82 20 118/67 95 04/17 2223 Nasal 1.0L Cannula 04/17 2208 98.1 65 22 118/80 90 04/17 2033 95 Nasal 1.0L Cannula 04/17 1433 98.3 82 18 134/64 93 Nasal 1.0L Cannula Intake & Output 04/18 1600 04/18 0800 04/18 0000 Intake Total 50 Output Total Balance 50 Intake, Oral 50 Patient 121 lb Weight Impression/Plan Impression/Plan Impression/Plan: 73-year-old admitted with exacerbation of COPD clinically improved Now still has a need for oxygen PLAN wean oxygen if erika cont meds Needs oxygen upon dc Start [id number] bid for 5-7 days and dc azithro cont slow steroid taper will follow ok to dc
[2018-04-18 14:11] VITALS: BP 120/64
--- NOTE | 2018-04-18 17:03 | Discharge Summary ---
Visit Information Visit Dates Admission Date: 04/14/18 Discharge Date: 04/18/2018 Hospital Course Course Attending Physician: Sharan Patel MD Primary Care Physician: Sharan Patel MD Hospital Course: Ms. Monaco is a 73 yo lady with past medical history significant for COPD not on home oxygen, CAD s/p 2 stent placement in 2010, hypertension, hyperlipidemia who presented to ED with complaint of increasing shortness of breath. Vital signs at the time of presentation: T 98.9, pulse 81, respirations 15, blood pressure 131/65, saturating 92% on room and subsequently started on supplemental oxygen 2 L. Labs at the time of presentation: WBC 10.4, H&H 14.9/44.2, platelets 379, sodium 133, potassium 3.0, urine 10, creatinine 0.6. Chloride 85, bicarbonate 35. While in the emergency department, Her EKG revealed T wave inversions in V2,V5, Avl, Avf (reported simimlar to EKG in 2017). She also received 1 dose of Augmentin. She was admitted to the telemetry service and below is a summary of the care she received under us. Problem list: Acute on chronic respiratory failure with hypoxemia AECOPD Hypokalemia H/x of CAD, HTN, Hyperlipidemia She was ruled out for an GA with serial troponins and EKG. These were within normal limits. We obtained a cardiology consultation who recommended in addition to ruling her out, we should also obtain an echocardiogram. We also obtained a pulmonology consultation who recommended the patient to be started on IV Solu-Medrol and azithromycin. On 04/16/2018 was subsequently converted to the patient to by mouth prednisone. This was subsequently tapered over the course of the admission and to be continued after discharge. On 2017 we questioned whether the patient would benefit from Ceftin 250 mg twice a day however this was deferred to be evaluated by the primary care physician as an outpatient. Medications medications for her chronic medical problems were all continued including :aspirin, amlodipine, inhalers, antihypertensives. Imaging studies from her admission have been included on this report. She was a full code over the course of admission. Allergies: Coded Allergies: No Known Allergies (04/14/18) Pertinent Lab Results: SERVICE DATE: 04/14/18 EXAM TYPE: RAD - XRY-CHEST XRAY, TWO VIEWS EXAMINATION: XR CHEST CLINICAL INFORMATION: Productive cough. COMPARISON: Chest radiography 06/30/2016. CT chest 10/07/2017. TECHNIQUE: 2 views of the chest were obtained. FINDINGS: The lungs are hyperexpanded. Minimal hazy basilar opacification overlying the posterior bilateral lower lobes on the lateral projection. No other consolidation, pleural effusion, pulmonary edema, or pneumothorax. No mediastinal widening. Aortic atherosclerotic calcification. No acute osseous abnormalities. IMPRESSION: Minimal hazy basilar opacification overlying the bilateral lower lobes on the lateral projection may represent atelectasis or other subtle consolidation. Hyperexpanded lungs consistent with COPD. DICTATED BY: Dandre Momin MD SERVICE DATE: 04/15/18 EXAM TYPE: CARD - ECHOCARDIOGRAM MALENA MONACO Age: 73 : 1945 Gender: F Exam Date: 04/15/2018 20:02 Exam Location: [address] [place] [address] Ht (in): 67 Wt (lb): 123 BSA: 1.62 BP: 122 / 54 Ordering Physician: Aurora Galo MD Referring Physician: Justino Cortez MD Technologist: Jyoti Drake DARRIN Room Number: 180-01 Indications: HEART FAILURE Rhythm: Sinus Technical Quality: Fair FINDINGS Left Ventricle Normal global left ventricular size, wall thickness, systolic function with no obvious regional wall motion abnormalities. Normal left ventricular ejection fraction estimated at 60-65%. Right Ventricle Normal right ventricular size and function. Right Atrium Normal right atrial size. Left Atrium Normal left atrial size. Mitral Valve Moderate thickening/calcification of the anterior mitral valve leaflet. Mild mitral valve prolapse. [id number] mitral regurgitation. Aortic Valve Diffuse thickening of the aortic valve cusps with reduced excursion. Mild aortic stenosis. Tricuspid Valve Tricuspid valve not well visualized, grossly normal. Mild-to- moderate tricuspid regurgitation. Right ventricular systolic pressure estimated at 32 mmHg. Pulmonic Valve Pulmonic valve not well visualized. Pericardium No pericardial effusion. Great Vessels Normal size aortic root and proximal ascending aorta. CONCLUSIONS 1. Mild aortic stenosis is present with a peak gradient of 19 mmHg and as estimated EDD of 1.9 cm2 2. Thickening and calcification of the mitral leaflets is present with mild bileaflet prolapse and mild to moderate mitral insufficiency. 3. There is no pericardial fluid present. 4. The left ventricular chamber size and systolic function are normal 5. Mild to moderate tricuspid insufficiency is present with no significant pulmonary hypertension. Yan Hernandez M.D. (Electronically Signed) Final Date: 17 Apr 2018 09:57 MEASUREMENTS (Male / Female) Normal Values 2D ECHO LV Diastolic Diameter PLAX 3.5 cm 4.2 - 5.9 / 3.9 - 5.3 cm LV Systolic Diameter PLAX 2.3 cm 2.1 - 4.0 cm LV Fractional Shortening PLAX 34.3 % 25 - 46 % LV Ejection Fraction 2D Teich 64.4 % IVS Diastolic Thickness 0.8 cm LVPW Diastolic Thickness 1.1 cm LV Relative Wall Thickness 0.5 RV Internal Dim ED PLAX 2.5 cm 1.9 - 3.8 cm LVOT Diameter 2.2 cm Aortic Root Diameter 2.9 cm LA Systolic Diameter LX 2.8 cm 3.0 - 4.0 / 2.7 - 3.8 cm LA Volume 32.0 cm 18 - 58 / 22 - 52 cm DOPPLER AV Peak Velocity 218.0 cm/s AV Peak Gradient 19.0 mmHg AV Mean Velocity 147.0 cm/s AV Mean Gradient 10.0 mmHg AV Velocity Time Integral 47.5 cm LVOT Peak Velocity 102.0 cm/s LVOT Peak Gradient 4.2 mmHg LVOT Mean Velocity 63.2 cm/s LVOT Mean Gradient 2.0 mmHg LVOT Velocity Time Integral 22.0 cm LVOT Stroke Volume 83.6 cm AV Area Cont Eq vti 1.8 cm AV Area Cont Eq pk 1.8 cm MV Peak Velocity 138.0 cm/s MV Peak Gradient 7.6 mmHg MV Mean Velocity 87.1 cm/s MV Mean Gradient 4.0 mmHg Mitral E Point Velocity 75.5 cm/s Mitral A Point Velocity 96.7 cm/s Mitral E to A Ratio 0.8 MV PHT Velocity 113.0 cm/s MV Deceleration [place] 428.0 cm/s MV Pressure Half Time 79.2 ms MV Area PHT 2.8 cm MV Deceleration Time 333.0 ms TR Peak Velocity 280.0 cm/s TR Peak Gradient 31.4 mmHg Right Atrial Pressure 5.0 mmHg Pulmonary Artery Systolic Pressu 36.4 mmHg Right Ventricular Systolic Press 36.4 mmHg PV Peak Velocity 139.0 cm/s PV Peak Gradient 7.7 mmHg PV Mean Velocity 103.0 cm/s PV Mean Gradient 5.0 mmHg PV Velocity Time Integral 36.5 cm LV E' Lateral Velocity 8.7 cm/s Mitral E to LV E' Lateral Ratio 8.7 LV E' Septal Velocity 7.1 cm/s Mitral E to LV E' Septal Ratio 10.6 DICTATED BY: Johann Hernandez MD Disposition Summary Disposition Principal Diagnosis: AECOPD Additional Diagnosis: HLD HTN CAD s/p placement of two sents Discharge Disposition: home or self care Discharge Instructions General Discharge Information Code Status: Full Code Patient's Diet: Heart Healthy Patient's Activity: As Tolerated Follow-Up Instructions/Appts: Please follow up with your PCP within seven days. Please follow up with your practical nursing instructor within 1-2 weeks. If your symptoms worsen, please call you PCP, you likely will need to be started on an antibiotic. Medications at Discharge Discharge Medications: Stop taking the following medications: Prednisone (Prednisone) 20 MG TABLET ORAL DAILY as needed for STEROID Continue taking these medications: Fluticasone/Salmeterol (Advair 500-50 Diskus) 500 MCG-50 MCG/DOSE BLST.W.DEV 1 Puff Inhale through mouth TWICE DAILY Comments: NOT GIVEN IN HOSPITAL Amlodipine Besylate (Norvasc) 5 MG TABLET 1 Tablet ORAL DAILY Comments: Last Taken:04/18/18 Time:0820 Indapamide (Indapamide) 1.25 MG TABLET 1 Tablet ORAL DAILY Comments: Last Taken:04/18/18 Time:0820 Simvastatin (Zocor*) 10 MG TABLET 1 Tablet ORAL DAILY Comments: NOT GIVEN, LIPITOR GIVEN INSTEAD 04/18/18 1624 Aspirin (Adult Low Dose Aspirin EC) 81 MG TABLET.DR 1 Tablet ORAL DAILY Comments: Last Taken:04/18/18 Time:0820 Albuterol Sulfate (Ventolin Hfa) 18 GM HFA.AER.AD 2 Puff Inhale through mouth EVERY 4-6 HOURS NEEDED as needed for COPD Qty = 18 Comments: not given in hospital Tiotropium [place] (Spiriva) 18 MCG CAP.W.DEV 1 Capsule Inhale through mouth DAILY Qty = 90 Comments: Last Taken:04/18/18 Time:0820 Ipratropium/Albuterol Sulfate (Iprat-Albut 0.5-3(2.5) MG/3 Ml) 0.5 MG-3 MG (2.5 MG BASE)/3 ML AMPUL.NEB 1 VIAL Inhale Solution via Nebulizer EVERY 4 HOURS NEEDED as needed for SHORTNESS OF BREATH Qty = 270 Comments: Last Taken:04/18/18 Time:08 Guaifenesin (Mucinex) 600 MG TAB.ER.12H 1 Tablet ORAL TWICE DAILY as needed for MUCUS Comments: Last Taken: 04/15/18 Time: 09 Start taking the following new medications: Prednisone (Prednisone) 10 MG TABLET 0 ORAL SEE INSTRUCTIONS Qty = 9 No Refills Instructions: On 04/19: take 3. 04/20-04/21: take 2 04/22-04/23: take 1. Then Stop Comments: Last Taken: 04/18/18 Time: 09 Copies To: Cassie MONTOYA,Jacques Cerna; Curtis MONTOYA,Jhon Cadena; Amanda MONTOYA,Sharan Caballero; Mary MONTOYA,Johann Neumann; Dana MONTOYA,Justino
== END 2018-04-18 17:16 | DRG 190 ==
LOC: ERH 07:39 → ERHI 12:00 → 1NO 12:00 → ENRESERV 14:32 → ENTRNSPT 15:50 → EDTRNSPT 16:10 → EDTRNSPTSTS 16:10 → CMPTRNSPT 16:26 → 1NO 16:36 → ENPENDDIS 04-18 14:47 → ENTRNSPT 04-18 17:12 → EDTRNSPTSTS 04-18 17:14 → EDTRNSPT 04-18 17:14 → 1NO 04-18 17:16 → CMPTRNSPT 04-18 17:23
PROVIDERS: Emergency Medicine; Internal Medicine
DX: J44.1 Chronic obstructive pulmonary disease with (acute) exacerbation (principal); J96.21 Acute and chronic respiratory failure with hypoxia; E87.6 Hypokalemia; I25.10 Atherosclerotic heart disease of native coronary artery without angina pectoris; Z98.61 Coronary angioplasty status; E78.5 Hyperlipidemia, unspecified; I10 Essential (primary) hypertension; Z79.82 Long term (current) use of aspirin; Z79.51 Long term (current) use of inhaled steroids; H26.9 Unspecified cataract
CPT/HCPCS: 1NSP; 36592; 71046; 82436; 87070; 93005; 93010; 93306; 99291; J0456; J1650; J2920; J3490; J7040; J7512